=== PATIENT | male | born 1955 | race Caucasian/White ===

== ENCOUNTER 2017-07-29 16:06 | Emergency (ER) | payer SELFPAY ==
[~2017-07-29] VITALS: Ht 180.3 cm; Wt 77.1 kg
[2017-07-29] MEDS ORDERED: cloNIDine HCL 0.1 MG TAB PO ONE (17:15)
[2017-07-29 20:16] VITALS: BP 155/85
== END 2017-07-29 20:42 | disposition home or self-care (01) ==
LOC: ER 16:06
DX: I16.0 Hypertensive urgency (principal); I10 Essential (primary) hypertension; Z87.891 Personal history of nicotine dependence

== ENCOUNTER 2022-07-22 00:07 | Inpatient (IN) | payer BC ==
[~2022-07-22] VITALS: Ht 177.8 cm; Wt 68.7 kg
[2022-07-22 01:01] LABS: Eosinophils # (auto) 0 10 ^3/uL (0-0.8); Hematocrit 25.3 % (41.0-53.0); Hemoglobin 8.1 g/dL (13.5-17.5); Lymphocytes # (auto) 0.1 10 ^3/uL (0.4-5.4); Monocytes # (auto) 0.1 10 ^3/uL (0-1.3); Monocytes % (auto) 0.7 % (0.0-12.0)
[2022-07-22 01:03] LABS: Basophils # (auto) 0 10 ^3/uL (0-0.2); Basophils % (auto) 0.3 % (0.0-2.0); Lymphocytes % (auto) 0.8 % (10.0-50.0); Mean Corpuscular Volume 93.7 fL (80.0-100.0); Neutrophils # (auto) 14.8 10 ^3/uL (1.6-8.6); Neutrophils % (auto) 98.2 % (37.0-80.0); Red Cell Distribution Width 14.3 % (11.8-14.3); White Blood Cell 15.1 10^3/uL (4.4-10.8)
[2022-07-22] MEDS ORDERED: SODIUM CHLORIDE 0.9% 1,000 ML IV ONE (01:15)
[2022-07-22] MEDS ORDERED: cefTRIAXone 1GM/50ML D5W 50 ML IV ONE (01:15)
[2022-07-22 01:22] LABS: Albumin 3.7 g/dL (3.4-5.0); BUN/Creatinine Ratio 11.1; Calcium 9.4 mg/dL (8.5-10.1); Potassium 4.3 mmol/L (3.5-5.1)
[2022-07-22 01:24] LABS: Bilirubin, Total 0.3 mg/dL (0.2-1.0); Total Protein 6.7 g/dL (6.4-8.2)
[2022-07-22] MEDS ORDERED: FERROUS SULFATE 325mg EC TAB PO ONE (01:45)
[2022-07-22] MEDS ORDERED: NITROGLYCERIN 0.4 MG SL TAB SL PRN (06:15)
[2022-07-22] MEDS ORDERED: DOCUSATE SOD 100 MG CAP PO PRN (06:15)
[2022-07-22] MEDS ORDERED: MORPHINE SULFATE INJ 2 MG/ml SYRG IV PRN (06:15)
[2022-07-22] MEDS ORDERED: SODIUM CHLORIDE 0.9% 1,000 ML IV SCH (06:15)
[2022-07-22] MEDS ORDERED: ONDANSETRON HCL 4 MG/2 ML VIAL IV PRN (06:15)
[2022-07-22 06:57] LABS: Albumin 3.3 g/dL (3.4-5.0)
[2022-07-22 07:05] LABS: Hematocrit 23.2 % (41.0-53.0); Hemoglobin 7.4 g/dL (13.5-17.5); Mean Corpuscular Hemoglobin 30.4 pg (28.0-32.0); Mean Corpuscular Hgb Conc. 31.7 g/dL (32.0-36.0); Mean Corpuscular Volume 95.8 fL (80.0-100.0); Red Blood Cells 2.43 10^6/uL (4.5-5.90); White Blood Cell 24.6 10^3/uL (4.4-10.8)
[2022-07-22 07:08] LABS: Basophils % (manual) 0 (0.0-2.0); Bilirubin, Total 0.2 mg/dL (0.2-1.0); Blast Cells 0; Eosinophils % (manual) 0 (0-7); Metamyelocytes % 0; Myelocytes % 0; Promyelocytes % 0; Reactive Lymphocytes 0
[2022-07-22 08:01] LABS: Band Neutrophils % (manual) 15; Lymphocytes % (manual) 3 (10.0-50.0); Monocytes % (manual) 7 (0-12)
[2022-07-22] MEDS: ACETAMINOPHEN 650 mg PER 20.3 mL UD PO ONE ×2 (08:48→08:53)
[2022-07-22] MEDS: cefTRIAXone 1GM/50ML D5W 50 ML IV SCH (08:54)
[2022-07-22] MEDS: MULTIPLE VITAMIN TAB PO SCH (10:01)
[2022-07-22] MEDS: DOCUSATE SOD 100 MG CAP PO SCH ×2 (10:35→22:00)
[2022-07-22] MEDS: SODIUM CHLORIDE 0.9% 1,000 ML IV SCH ×2 (10:36→20:00)
[2022-07-22] MEDS: HYDROcodone-ACET 5/325MG TAB PO PRN ×2 (13:18→20:14)
[2022-07-22] MEDS: AMITRIPTYLINE HCL 25 MG TAB PO SCH (23:09)
[2022-07-22 23:57] LABS: Hematocrit 22.2 % (41.0-53.0); Hemoglobin 7.3 g/dL (13.5-17.5)
[2022-07-23] VITALS (9 sets, daily range): BP systolic 96–137; BP diastolic 47–74
[2022-07-23] MEDS: HYDROcodone-ACET 5/325MG TAB PO PRN ×2 (02:26→08:31)
[2022-07-23] MEDS: SODIUM CHLORIDE 0.9% 1,000 ML IV SCH (05:14)
[2022-07-23] MEDS: MULTIPLE VITAMIN TAB PO SCH (09:16)
[2022-07-23] MEDS: cefTRIAXone 1GM/50ML D5W 50 ML IV SCH (09:16)
[2022-07-23] MEDS: DOCUSATE SOD 100 MG CAP PO SCH ×2 (09:16→21:45)
[2022-07-23 10:17] LABS: Mean Corpuscular Hgb Conc. 34.1 g/dL (32.0-36.0); Red Blood Cells 2.09 10^6/uL (4.5-5.90); White Blood Cell 6.7 10^3/uL (4.4-10.8)
[2022-07-23 10:19] LABS: Mean Corpuscular Volume 90.9 fL (80.0-100.0); Red Cell Distribution Width 14.3 % (11.8-14.3)
[2022-07-23 10:53] LABS: Hemoglobin 6.5 g/dL (13.5-17.5)
[2022-07-23 10:54] LABS: Basophils % (manual) 0 (0.0-2.0); Blast Cells 0; Metamyelocytes % 0; Myelocytes % 0; Promyelocytes % 0; Reactive Lymphocytes 0
[2022-07-23 11:30] LABS: Potassium 4.3 mmol/L (3.5-5.1)
[2022-07-23 11:58] LABS: Albumin 2.8 g/dL (3.4-5.0); BUN/Creatinine Ratio 12.5; Bilirubin, Total 0.2 mg/dL (0.2-1.0); Calcium 9.1 mg/dL (8.5-10.1); Total Protein 5.4 g/dL (6.4-8.2)
[2022-07-23 13:12] LABS: Urine Bacteria NONE SEEN /hpf (None Seen); Urine Blood 2+ /uL (Negative); Urine Mucus FEW (None Seen); Urine Specific Gravity 1.009 (1.001-1.035); Urine WBC 57 /hpf (0 - 3); Urine WBC Clumps PRESENT /hpf (None Seen)
[2022-07-23 13:36] LABS: Band Neutrophils % (manual) 7; Eosinophils % (manual) 4 (0-7); Lymphocytes % (manual) 7 (10.0-50.0); Monocytes % (manual) 2 (0-12)
[2022-07-23] MEDS: SOD CHL 0.45% 1,000 ML IV SCH (15:45)
[2022-07-23] MEDS: HYDROcodone-ACET 10/325MG TAB PO PRN ×2 (15:58→21:50)
[2022-07-23] MEDS: AMITRIPTYLINE HCL 25 MG TAB PO SCH (21:46)
[2022-07-24] MEDS: SOD CHL 0.45% 1,000 ML IV SCH ×2 (00:43→10:30)
[2022-07-24] MEDS: HYDROcodone-ACET 10/325MG TAB PO PRN ×3 (04:32→19:08)
[2022-07-24 05:00] VITALS: BP 122/69
[2022-07-24 07:04] LABS: Hemoglobin 7.1 g/dL (13.5-17.5); Red Cell Distribution Width 15.6 % (11.8-14.3)
[2022-07-24 07:08] LABS: Hematocrit 21.3 % (41.0-53.0); Mean Corpuscular Hemoglobin 30.5 pg (28.0-32.0); Mean Corpuscular Hgb Conc. 33.3 g/dL (32.0-36.0); Mean Corpuscular Volume 91.6 fL (80.0-100.0); Red Blood Cells 2.33 10^6/uL (4.5-5.90); White Blood Cell 3.9 10^3/uL (4.4-10.8)
[2022-07-24 07:18] LABS: Basophils % (manual) 0 (0.0-2.0); Blast Cells 0; Metamyelocytes % 0; Myelocytes % 0; Promyelocytes % 0; Reactive Lymphocytes 0
[2022-07-24 07:28] LABS: Potassium 4.8 mmol/L (3.5-5.1)
[2022-07-24 08:14] LABS: Band Neutrophils % (manual) 2; Eosinophils % (manual) 10 (0-7); Lymphocytes % (manual) 23 (10.0-50.0); Monocytes % (manual) 13 (0-12)
[2022-07-24 09:00] VITALS: BP 120/67
[2022-07-24] MEDS: DOCUSATE SOD 100 MG CAP PO SCH ×2 (10:37→22:19)
[2022-07-24] MEDS: cefTRIAXone 1GM/50ML D5W 50 ML IV SCH (10:37)
[2022-07-24] MEDS: MULTIPLE VITAMIN TAB PO SCH (10:38)
[2022-07-24 13:00] VITALS: BP 128/60
[2022-07-24 17:00] VITALS: BP 135/63
[2022-07-24 22:00] VITALS: BP 159/63
[2022-07-24] MEDS: AMITRIPTYLINE HCL 25 MG TAB PO SCH (22:25)
[2022-07-25] MEDS: HYDROcodone-ACET 10/325MG TAB PO PRN ×5 (01:07→20:45)
[2022-07-25 05:00] VITALS: BP 123/63
[2022-07-25] MEDS: SOD CHL 0.45% 1,000 ML IV SCH ×3 (06:43→15:15)
[2022-07-25 07:54] LABS: Hematocrit 21.9 % (41.0-53.0); Hemoglobin 7.3 g/dL (13.5-17.5); Mean Corpuscular Hemoglobin 30.2 pg (28.0-32.0); Mean Corpuscular Hgb Conc. 33.1 g/dL (32.0-36.0); Mean Corpuscular Volume 91.1 fL (80.0-100.0); Red Blood Cells 2.41 10^6/uL (4.5-5.90); Red Cell Distribution Width 15.5 % (11.8-14.3); White Blood Cell 4.1 10^3/uL (4.4-10.8)
[2022-07-25 07:57] LABS: Basophils % (manual) 0 (0.0-2.0); Blast Cells 0; Metamyelocytes % 0; Myelocytes % 0; Promyelocytes % 0
[2022-07-25 08:00] VITALS: BP 139/71
[2022-07-25 08:36] LABS: Potassium 4.9 mmol/L (3.5-5.1)
[2022-07-25 08:47] LABS: BUN/Creatinine Ratio 14.1; Calcium 9.3 mg/dL (8.5-10.1)
[2022-07-25] MEDS: MULTIPLE VITAMIN TAB PO SCH (09:11)
[2022-07-25] MEDS: cefTRIAXone 1GM/50ML D5W 50 ML IV SCH (09:11)
[2022-07-25] MEDS: DOCUSATE SOD 100 MG CAP PO SCH (09:11)
[2022-07-25 09:52] LABS: Band Neutrophils % (manual) 3; Eosinophils % (manual) 5 (0-7); Lymphocytes % (manual) 14 (10.0-50.0); Monocytes % (manual) 15 (0-12); Reactive Lymphocytes 1
[2022-07-25 13:00] VITALS: BP 122/72
[2022-07-25 17:12] VITALS: BP 118/70
[2022-07-25] MEDS: SODIUM FERR GLUC 62.5MG/5ML 125 MG in SODIUM CHL 0.9% 100 ML IV SCH (17:12)
[2022-07-25] MEDS: SEVELAMER 800 MG TAB PO SCH (17:13)
[2022-07-25 22:00] VITALS: BP 141/69
[2022-07-26] MEDS: DOCUSATE SOD 100 MG CAP PO SCH ×3 (02:29→21:36)
[2022-07-26] MEDS: AMITRIPTYLINE HCL 25 MG TAB PO SCH ×2 (02:30→21:36)
[2022-07-26 05:00] VITALS: BP 164/75
[2022-07-26] MEDS: SOD CHL 0.45% 1,000 ML IV SCH ×2 (05:33→19:51)
[2022-07-26 06:58] VITALS: BP 134/71
[2022-07-26] MEDS: cefTRIAXone 1GM/50ML D5W 50 ML IV SCH (08:01)
[2022-07-26] MEDS: SEVELAMER 800 MG TAB PO SCH ×3 (08:01→19:07)
[2022-07-26] MEDS: MULTIPLE VITAMIN TAB PO SCH (08:01)
[2022-07-26 09:08] VITALS: BP 131/74
[2022-07-26] MEDS ORDERED: levoFLOXacin 500MG 100 ML IV ONE (11:00)
[2022-07-26] MEDS: HYDROcodone-ACET 10/325MG TAB PO PRN ×2 (11:10→19:07)
[2022-07-26 13:00] VITALS: BP 150/80
[2022-07-26] MEDS: SODIUM FERR GLUC 62.5MG/5ML 125 MG in SODIUM CHL 0.9% 100 ML IV SCH (13:47)
[2022-07-26 16:39] VITALS: BP 132/84
[2022-07-26 17:30] LABS: % Iron Saturation 15.1 % (20-55)
[2022-07-26 22:00] VITALS: BP 166/91
[2022-07-27] MEDS: HYDROcodone-ACET 10/325MG TAB PO PRN ×3 (01:25→13:56)
[2022-07-27 05:00] VITALS: BP 131/71
[2022-07-27 07:44] LABS: Calcium 9.6 mg/dL (8.5-10.1); Potassium 5.3 mmol/L (3.5-5.1)
[2022-07-27 07:47] LABS: BUN/Creatinine Ratio 15.5
[2022-07-27] MEDS: SEVELAMER 800 MG TAB PO SCH ×2 (08:17→12:25)
[2022-07-27 09:00] VITALS: BP 162/80
[2022-07-27] MEDS: DOCUSATE SOD 100 MG CAP PO SCH (09:38)
[2022-07-27] MEDS: MULTIPLE VITAMIN TAB PO SCH (09:38)
[2022-07-27] MEDS ORDERED: levoFLOXacin 250MG 100 ML IV SCH (10:00)
[2022-07-27] MEDS ORDERED: SODIUM BICARBONATE 50ML VIAL 50 ML in SOD CHL 0.45% 1,000 ML IV SCH (12:00)
[2022-07-27 13:00] VITALS: BP 149/85
[2022-07-27] MEDS ORDERED: LEVO500T31 PO (13:11)
[2022-07-27] MEDS ORDERED: SEVE800T PO (13:11)
[2022-07-27] MEDS ORDERED: HYDR-4798 PO (13:11)
[2022-07-27] MEDS ORDERED: FERR-7 PO (13:11)
[2022-07-27] MEDS: SODIUM FERR GLUC 62.5MG/5ML 125 MG in SODIUM CHL 0.9% 100 ML IV SCH (13:30)
[2022-07-27 14:54] LABS: Protein, Urine 52.5 mg/dL (0.0-11.9)
[2022-07-27 15:38] VITALS: BP 149/85
[2022-07-27 17:00] VITALS: BP 89/51
== END 2022-07-27 17:35 | disposition home or self-care (01) | DRG 872 ==
LOC: ER 00:11 → OVERFLOW 06:07 → WEST WING 07-23 02:43
PROVIDERS: ADMIT Nurse Practitioner; ATTEND Family Medicine
PROC: 30233N1 Transfusion of Nonautologous Red Blood Cells into Peripheral Vein, Percutaneous Approach (ICD-10-PCS; principal; 2022-07-23)
DX: A41.9 Sepsis, unspecified organism (principal); I12.0 Hypertensive chronic kidney disease with stage 5 chronic kidney disease or end stage renal disease; N13.8 Other obstructive and reflux uropathy; Z16.19 Resistance to other specified beta lactam antibiotics; N17.9 Acute kidney failure, unspecified; N18.5 Chronic kidney disease, stage 5; Z20.822 Contact with and (suspected) exposure to COVID-19; D50.0 Iron deficiency anemia secondary to blood loss (chronic); D63.1 Anemia in chronic kidney disease; F31.9 Bipolar disorder, unspecified; G89.4 Chronic pain syndrome; N40.1 Benign prostatic hyperplasia with lower urinary tract symptoms; N30.91 Cystitis, unspecified with hematuria; Z82.49 Family history of ischemic heart disease and other diseases of the circulatory system
CPT/HCPCS: 36415; 74176; 76775; 80048; 80053; 81001; 82306; 82570; 82728; 83540; 83550; 83970; 84100; 84156; 84300; 84550; 85007; 85014; 85018; 85025; 85027; 86850; 86900; 86901; 86920; 87040; 87086; 87088; 87186; 87426; 96361; 96365; 96366; G0378; J0696; J1956; J2405

== ENCOUNTER 2022-12-24 11:08 | Inpatient (IN) | payer MEDICARE, BC ==
[~2022-12-24] VITALS: Ht 177.8 cm; Wt 66.4 kg
[~2022-12-24 11:08] MED LIST: FERR-7 PO; HYDR-4798 PO; LEVO500T31 PO; SEVE800T PO
[2022-12-24] MEDS ORDERED: cefTRIAXone 1GM/50ML D5W 50 ML IV ONE (11:45)
[2022-12-24] MEDS ORDERED: CLINDAMYCIN 600MG IV 50 ML IV ONE (11:45)
[2022-12-24 11:47] LABS: Basophils # (auto) 0.2 10 ^3/uL (0-0.2); Hemoglobin 7.7 g/dL (13.5-17.5); Monocytes # (auto) 0.8 10 ^3/uL (0-1.3); White Blood Cell 8.8 10^3/uL (4.4-10.8)
[2022-12-24 11:48] LABS: Albumin 2.7 g/dL (3.4-5.0); BUN/Creatinine Ratio 6.8 (10.0-20.0); Calcium 8.3 mg/dL (8.5-10.1); Potassium 5.3 mmol/L (3.5-5.1)
[2022-12-24 11:49] LABS: Eosinophils # (auto) 0.8 10 ^3/uL (0-0.8); Eosinophils % (auto) 9.2 % (0.0-7.0); Hematocrit 23.2 % (41.0-53.0); Lymphocytes # (auto) 0.7 10 ^3/uL (0.4-5.4); Lymphocytes % (auto) 8.4 % (10.0-50.0); Mean Corpuscular Hemoglobin 30.3 pg (28.0-32.0); Mean Corpuscular Volume 91.7 fL (80.0-100.0); Monocytes % (auto) 8.6 % (0.0-12.0); Neutrophils # (auto) 6.3 10 ^3/uL (1.6-8.6); Neutrophils % (auto) 71.8 % (37.0-80.0); Nucleated Red Blood Cells % 0.1 %; Red Blood Cells 2.53 10^6/uL (4.5-5.90); Red Cell Distribution Width 15.2 % (11.8-14.3)
[2022-12-24 11:51] LABS: Bilirubin, Total 0.3 mg/dL (0.2-1.0); Total Protein 6.1 g/dL (6.4-8.2)
[2022-12-24 12:04] LABS: INR 0.89 (0.9-1.15)
[2022-12-24] MEDS ORDERED: FUROSEMIDE 40 MG/4 ML VIAL IV ONE (12:30)
[2022-12-24] MEDS ORDERED: DEXTROSE (50%) 50ML SYRG IV PRN (12:45)
[2022-12-24] MEDS: MORPHINE SULFATE INJ 2 MG/ml SYRG IV PRN ×2 (13:14→20:37)
[2022-12-24] MEDS: InsuLIN REG 1unit/0.01ml Soln (100units/ml) SC SCH ×2 (20:08→22:56)
[2022-12-24] MEDS: ACCU-CHEK COMFORT CURVE STRIP VI SCH ×2 (20:08→22:14)
[2022-12-24 22:00] VITALS: BP 167/75
[2022-12-24] MEDS: SEVELAMER 800 MG TAB PO SCH (22:14)
[2022-12-24] MEDS: FERROUS SULFATE 325mg EC TAB PO SCH (22:14)
[2022-12-24] MEDS: HEPARIN SODIUM (PORCINE) 5000 UNITS/ML 1ML VIAL SC SCH (22:56)
[2022-12-25] VITALS (11 sets, daily range): BP systolic 134–159; BP diastolic 66–100
[2022-12-25] MEDS: MORPHINE SULFATE INJ 2 MG/ml SYRG IV PRN ×4 (01:34→21:36)
[2022-12-25 05:52] LABS: Basophils # (auto) 0.2 10 ^3/uL (0-0.2); Lymphocytes # (auto) 0.8 10 ^3/uL (0.4-5.4); Monocytes # (auto) 0.7 10 ^3/uL (0-1.3)
[2022-12-25 05:54] LABS: Basophils % (auto) 2.1 % (0.0-2.0); Eosinophils # (auto) 0.7 10 ^3/uL (0-0.8); Eosinophils % (auto) 9.6 % (0.0-7.0); Lymphocytes % (auto) 10.5 % (10.0-50.0); Mean Corpuscular Hemoglobin 30.2 pg (28.0-32.0); Mean Corpuscular Hgb Conc. 33.1 g/dL (32.0-36.0); Mean Corpuscular Volume 91.1 fL (80.0-100.0); Monocytes % (auto) 9.6 % (0.0-12.0); Neutrophils # (auto) 5.2 10 ^3/uL (1.6-8.6); Neutrophils % (auto) 68.2 % (37.0-80.0); Red Blood Cells 2.31 10^6/uL (4.5-5.90); Red Cell Distribution Width 15.4 % (11.8-14.3); White Blood Cell 7.6 10^3/uL (4.4-10.8)
[2022-12-25 06:11] LABS: Albumin 2.7 g/dL (3.4-5.0)
[2022-12-25 06:20] LABS: BUN/Creatinine Ratio 7.8 (10.0-20.0); Bilirubin, Total 0.4 mg/dL (0.2-1.0); Calcium 8.1 mg/dL (8.5-10.1); Total Protein 5.6 g/dL (6.4-8.2)
[2022-12-25] MEDS: InsuLIN REG 1unit/0.01ml Soln (100units/ml) SC SCH (06:31)
[2022-12-25] MEDS: ACCU-CHEK COMFORT CURVE STRIP VI SCH (06:31)
[2022-12-25] MEDS: SEVELAMER 800 MG TAB PO SCH ×3 (06:31→21:30)
[2022-12-25] MEDS: cefTRIAXone 1GM/50ML D5W 50 ML IV SCH (08:46)
[2022-12-25] MEDS: FERROUS SULFATE 325mg EC TAB PO SCH ×2 (08:50→21:29)
[2022-12-25] MEDS: PANTOPRAZOLE 40 MG TAB PO SCH (08:50)
[2022-12-25 09:53] LABS: Urine Bacteria MOD /hpf (None Seen); Urine Blood TRACE /uL (Negative); Urine Budding Yeast OCCASIONAL /hpf (None Seen); Urine Mucus FEW (None Seen); Urine Specific Gravity 1.009 (1.001-1.035); Urine WBC 186 /hpf (0 - 3)
[2022-12-25] MEDS: HEPARIN SODIUM (PORCINE) 5000 UNITS/ML 1ML VIAL SC SCH (10:00)
[2022-12-25 10:06] LABS: Alcohol, Urine < 3.0 mg/dL (0-10); Amphetamine Screen, Urine NEGATIVE (NEGATIVE); Barbiturate Scree,Urine NEGATIVE (NEGATIVE); Benzodiazephine Screen, Urine NEGATIVE (NEGATIVE); Cannabinoid Screen, Urine NEGATIVE (NEGATIVE); Cocaine Screen, Urine NEGATIVE (NEGATIVE); Opiate Scree,Urine NEGATIVE (NEGATIVE); Phencyclidine Screen, Urine NEGATIVE (NEGATIVE)
[2022-12-25] MEDS ORDERED: ALBUMIN 25% 100 ML IV PRN (11:15)
[2022-12-25 12:19] LABS: Hematocrit 20.2 % (41.0-53.0)
[2022-12-25 12:30] LABS: Hemoglobin 6.5 g/dL (13.5-17.5)
[2022-12-25] MEDS: ACETAMINOPHEN 500 MG TAB PO PRN ×2 (13:47→20:26)
[2022-12-25] MEDS: FUROSEMIDE 20 MG/2 ML VIAL IV SCH (15:35)
[2022-12-25] MEDS ORDERED: EPOETIN ALFA-EPBX 4,000 UNIT/ML VIAL SC ONE (21:00)
[2022-12-25] MEDS ORDERED: dilTIAZem 25 MG/5 ML VIAL IV ONE ×2 (22:00→22:01)
[2022-12-25] MEDS ORDERED: AMIODARONE HCL (50 MG/ ML) 3 ML VIAL IV ONE (22:10)
[2022-12-25] MEDS ORDERED: MORPHINE SULFATE INJ 2 MG/ml SYRG IV PRN (22:15)
[2022-12-25] MEDS ORDERED: NITROGLYCERIN 0.4 MG SL TAB SL PRN (22:15)
[2022-12-26 00:03] LABS: Albumin 2.5 g/dL (3.4-5.0); BUN/Creatinine Ratio 7.5 (10.0-20.0); Magnesium 1.8 mg/dL (1.6-2.6); Potassium 4.2 mmol/L (3.5-5.1)
[2022-12-26 00:14] LABS: Bilirubin, Total 0.3 mg/dL (0.2-1.0); Total Protein 6.2 g/dL (6.4-8.2)
[2022-12-26] MEDS: MORPHINE SULFATE INJ 2 MG/ml SYRG IV PRN ×3 (01:59→23:49)
[2022-12-26 05:00] VITALS: BP 140/88
[2022-12-26] MEDS: SEVELAMER 800 MG TAB PO SCH ×3 (05:10→21:03)
[2022-12-26] MEDS: SODIUM CHLOR 0.9% PF (SALINE LOCK) 10ML VIAL/SYR IV SCH ×3 (05:11→23:44)
[2022-12-26 06:31] LABS: Albumin 2.3 g/dL (3.4-5.0); BUN/Creatinine Ratio 8.9 (10.0-20.0); Calcium 8.2 mg/dL (8.5-10.1); Potassium 4.2 mmol/L (3.5-5.1)
[2022-12-26 06:32] LABS: Basophils # (auto) 0.1 10 ^3/uL (0-0.2); Eosinophils # (auto) 0.4 10 ^3/uL (0-0.8); Lymphocytes # (auto) 0.9 10 ^3/uL (0.4-5.4); White Blood Cell 8.5 10^3/uL (4.4-10.8)
[2022-12-26 06:34] LABS: Basophils % (auto) 1.3 % (0.0-2.0); Bilirubin, Total 0.4 mg/dL (0.2-1.0); Eosinophils % (auto) 4.3 % (0.0-7.0); Hematocrit 22.8 % (41.0-53.0); Hemoglobin 7.6 g/dL (13.5-17.5); Lymphocytes % (auto) 11.1 % (10.0-50.0); Mean Corpuscular Hemoglobin 29.6 pg (28.0-32.0); Mean Corpuscular Hgb Conc. 33.2 g/dL (32.0-36.0); Mean Corpuscular Volume 89.3 fL (80.0-100.0); Monocytes # (auto) 1.2 10 ^3/uL (0-1.3); Monocytes % (auto) 13.7 % (0.0-12.0); Neutrophils # (auto) 5.9 10 ^3/uL (1.6-8.6); Neutrophils % (auto) 69.6 % (37.0-80.0); Nucleated Red Blood Cells % 0.1 %; Red Blood Cells 2.56 10^6/uL (4.5-5.90); Red Cell Distribution Width 15.7 % (11.8-14.3); Total Protein 5.8 g/dL (6.4-8.2)
[2022-12-26 08:40] VITALS: BP 137/77
[2022-12-26] MEDS: ACETAMINOPHEN 500 MG TAB PO PRN (11:17)
[2022-12-26] MEDS: FUROSEMIDE 20 MG/2 ML VIAL IV SCH (11:17)
[2022-12-26] MEDS: FERROUS SULFATE 325mg EC TAB PO SCH ×2 (11:18→21:03)
[2022-12-26] MEDS: PANTOPRAZOLE 40 MG TAB PO SCH (11:18)
[2022-12-26] MEDS: cefTRIAXone 1GM/50ML D5W 50 ML IV SCH (11:18)
[2022-12-26 13:00] VITALS: BP 128/80
[2022-12-26 16:40] VITALS: BP 138/90
[2022-12-26] MEDS ORDERED: BUMETANIDE INJECTION 25 MG in GIVE UN-DILUTED 0 ML IV SCH (20:15)
[2022-12-26 22:00] VITALS: BP 157/85
[2022-12-27] VITALS (36 sets, daily range): BP systolic 136–175; BP diastolic 63–98
[2022-12-27] MEDS: hydrALAZINE HCL 20 MG/ML VL IV PRN (04:50)
[2022-12-27] MEDS: SEVELAMER 800 MG TAB PO SCH ×3 (05:10→21:28)
[2022-12-27] MEDS: SODIUM CHLOR 0.9% PF (SALINE LOCK) 10ML VIAL/SYR IV SCH ×3 (05:11→22:00)
[2022-12-27 05:53] LABS: Basophils # (auto) 0.1 10 ^3/uL (0-0.2); Eosinophils # (auto) 0.4 10 ^3/uL (0-0.8); Hemoglobin 7.3 g/dL (13.5-17.5); Lymphocytes # (auto) 0.9 10 ^3/uL (0.4-5.4); Mean Corpuscular Volume 90.4 fL (80.0-100.0); Monocytes # (auto) 1.3 10 ^3/uL (0-1.3)
[2022-12-27 05:56] LABS: Basophils % (auto) 1.2 % (0.0-2.0); Hematocrit 22.4 % (41.0-53.0); Mean Corpuscular Hemoglobin 29.4 pg (28.0-32.0); Mean Corpuscular Hgb Conc. 32.6 g/dL (32.0-36.0); Monocytes % (auto) 13.4 % (0.0-12.0); Neutrophils # (auto) 6.7 10 ^3/uL (1.6-8.6); Neutrophils % (auto) 71.4 % (37.0-80.0); Red Blood Cells 2.48 10^6/uL (4.5-5.90); Red Cell Distribution Width 15.6 % (11.8-14.3); White Blood Cell 9.4 10^3/uL (4.4-10.8)
[2022-12-27 06:15] LABS: % Iron Saturation 6.6 % (20-55)
[2022-12-27 06:17] LABS: Potassium 4.8 mmol/L (3.5-5.1)
[2022-12-27 06:27] LABS: Albumin 2.5 g/dL (3.4-5.0); BUN/Creatinine Ratio 9.9 (10.0-20.0); Bilirubin, Total 0.3 mg/dL (0.2-1.0); Calcium 8.3 mg/dL (8.5-10.1)
[2022-12-27 06:33] LABS: Folate (Folic Acid) 4.99 ng/mL (5.38-24)
[2022-12-27] MEDS: MORPHINE SULFATE INJ 2 MG/ml SYRG IV PRN ×3 (08:11→21:19)
[2022-12-27] MEDS: PANTOPRAZOLE 40 MG TAB PO SCH (09:25)
[2022-12-27] MEDS: cefTRIAXone 1GM/50ML D5W 50 ML IV SCH (09:25)
[2022-12-27] MEDS: ACETAMINOPHEN 500 MG TAB PO PRN (10:28)
[2022-12-27] MEDS ORDERED: LORazepam 2MG/ML-1ML VIAL IV ONE (11:45)
[2022-12-27] MEDS ORDERED: ADENOSINE 6 MG/2 ML INJ IV ONE (11:45)
[2022-12-27] MEDS ORDERED: LORazepam 2MG/ML-1ML VIAL ONE (11:47)
[2022-12-27] MEDS ORDERED: AMIODARONE 450mg/250ml AE 250 ML IV ONE (11:53)
[2022-12-27] MEDS ORDERED: DIGOXIN (250MCG/ML) 2 ML AMPULE IV ONE (12:00)
[2022-12-27] MEDS ORDERED: AMIODARONE HCL 150 MG in D5W 5% 100 ML IV ONE (12:00)
[2022-12-27] MEDS ORDERED: DIGOXIN (250MCG/ML) 2 ML AMPULE ONE (12:00)
[2022-12-27] MEDS ORDERED: METOPROLOL TARTRATE 1MG/1ML-5ML VIAL IV ONE ×2 (12:14→12:15)
[2022-12-27] MEDS ORDERED: AMIODARONE 450mg/250ml AE 250 ML IV SCH ×4 (12:15→22:45)
[2022-12-27] MEDS: SODIUM FERR GLUC 62.5MG/5ML 125 MG in SODIUM CHL 0.9% 100 ML IV SCH (15:44)
[2022-12-27] MEDS: AMIODARONE 450mg/250ml AE 250 ML IV SCH ×2 (16:30→22:01)
[2022-12-27] MEDS ORDERED: FUROSEMIDE 100 MG/10ML VIAL IV ONE (16:30)
[2022-12-27] MEDS ORDERED: FUROSEMIDE 40 MG/4 ML VIAL IV ONE (20:30)
[2022-12-27] MEDS: ALPRAZolam 0.5 MG TAB PO SCH (21:28)
[2022-12-28] VITALS (63 sets, daily range): BP systolic 12–174; BP diastolic 45–97
[2022-12-28] MEDS: hydrALAZINE HCL 20 MG/ML VL IV PRN (01:48)
[2022-12-28 05:07] LABS: Basophils # (auto) 0.1 10 ^3/uL (0-0.2); Basophils % (auto) 0.9 % (0.0-2.0); Eosinophils # (auto) 0.5 10 ^3/uL (0-0.8); Eosinophils % (auto) 6.3 % (0.0-7.0); Hematocrit 23.4 % (41.0-53.0); Hemoglobin 7.8 g/dL (13.5-17.5); Lymphocytes # (auto) 0.9 10 ^3/uL (0.4-5.4); Lymphocytes % (auto) 11.3 % (10.0-50.0); Mean Corpuscular Hgb Conc. 33.3 g/dL (32.0-36.0); Mean Corpuscular Volume 90.1 fL (80.0-100.0); Monocytes # (auto) 1.2 10 ^3/uL (0-1.3); Neutrophils # (auto) 5.6 10 ^3/uL (1.6-8.6); Neutrophils % (auto) 67.5 % (37.0-80.0); Red Blood Cells 2.59 10^6/uL (4.5-5.90); Red Cell Distribution Width 15.8 % (11.8-14.3); White Blood Cell 8.3 10^3/uL (4.4-10.8)
[2022-12-28 05:35] LABS: Albumin 2.4 g/dL (3.4-5.0); Calcium 8.9 mg/dL (8.5-10.1); Potassium 5.1 mmol/L (3.5-5.1)
[2022-12-28 05:39] LABS: Bilirubin, Total 0.4 mg/dL (0.2-1.0); Total Protein 5.8 g/dL (6.4-8.2)
[2022-12-28] MEDS ORDERED: FUROSEMIDE 100 MG/10ML VIAL IV SCH (06:00)
[2022-12-28] MEDS: SODIUM CHLOR 0.9% PF (SALINE LOCK) 10ML VIAL/SYR IV SCH ×3 (06:00→21:29)
[2022-12-28] MEDS: ALPRAZolam 0.5 MG TAB PO SCH ×3 (06:42→21:29)
[2022-12-28] MEDS: SEVELAMER 800 MG TAB PO SCH ×3 (06:42→21:29)
[2022-12-28] MEDS: FUROSEMIDE 100 MG/10ML VIAL IV SCH ×2 (06:43→18:39)
[2022-12-28] MEDS: MORPHINE SULFATE INJ 2 MG/ml SYRG IV PRN ×2 (06:51→23:24)
[2022-12-28] MEDS: PANTOPRAZOLE 40 MG TAB PO SCH (08:40)
[2022-12-28] MEDS: ACETAMINOPHEN 500 MG TAB PO PRN (11:38)
[2022-12-28] MEDS: SODIUM FERR GLUC 62.5MG/5ML 125 MG in SODIUM CHL 0.9% 100 ML IV SCH (14:08)
[2022-12-28] MEDS: AMIODARONE 450mg/250ml AE 250 ML IV SCH (14:59)
[2022-12-28] MEDS: cefTRIAXone 1GM/50ML D5W 50 ML IV SCH (15:11)
[2022-12-28] MEDS ORDERED: EPOETIN ALFA-EPBX 4,000 UNIT/ML VIAL SC ONE (21:00)
[2022-12-29] VITALS (18 sets, daily range): BP systolic 121–164; BP diastolic 58–80
[2022-12-29 05:34] LABS: Basophils # (auto) 0.1 10 ^3/uL (0-0.2); Eosinophils # (auto) 0.7 10 ^3/uL (0-0.8); Hemoglobin 8.1 g/dL (13.5-17.5); Mean Corpuscular Volume 88.8 fL (80.0-100.0); Monocytes # (auto) 1.1 10 ^3/uL (0-1.3)
[2022-12-29 05:38] LABS: Basophils % (auto) 2.1 % (0.0-2.0); Eosinophils % (auto) 10.1 % (0.0-7.0); Hematocrit 24.4 % (41.0-53.0); Lymphocytes % (auto) 13.9 % (10.0-50.0); Mean Corpuscular Hemoglobin 29.4 pg (28.0-32.0); Mean Corpuscular Hgb Conc. 33.1 g/dL (32.0-36.0); Monocytes % (auto) 16.1 % (0.0-12.0); Neutrophils # (auto) 4.1 10 ^3/uL (1.6-8.6); Neutrophils % (auto) 57.8 % (37.0-80.0); Nucleated Red Blood Cells % 0.1 %; Red Blood Cells 2.74 10^6/uL (4.5-5.90); Red Cell Distribution Width 15.8 % (11.8-14.3)
[2022-12-29 05:39] LABS: Albumin 2.4 g/dL (3.4-5.0); Calcium 8.8 mg/dL (8.5-10.1); Potassium 4.6 mmol/L (3.5-5.1)
[2022-12-29 05:42] LABS: BUN/Creatinine Ratio 11.6 (10.0-20.0); Bilirubin, Total 0.2 mg/dL (0.2-1.0); Total Protein 5.7 g/dL (6.4-8.2)
[2022-12-29] MEDS: ALPRAZolam 0.5 MG TAB PO SCH ×3 (05:56→21:10)
[2022-12-29] MEDS: SEVELAMER 800 MG TAB PO SCH ×3 (05:57→21:09)
[2022-12-29] MEDS: SODIUM CHLOR 0.9% PF (SALINE LOCK) 10ML VIAL/SYR IV SCH ×3 (05:57→21:10)
[2022-12-29] MEDS: FUROSEMIDE 100 MG/10ML VIAL IV SCH ×2 (06:10→16:41)
[2022-12-29] MEDS: AMIODARONE 450mg/250ml AE 250 ML IV SCH (06:11)
[2022-12-29] MEDS: cefTRIAXone 1GM/50ML D5W 50 ML IV SCH (08:42)
[2022-12-29] MEDS: PANTOPRAZOLE 40 MG TAB PO SCH (08:42)
[2022-12-29] MEDS: AMIODARONE HCL 200 MG TAB PO SCH ×2 (09:05→21:09)
[2022-12-29] MEDS: MORPHINE SULFATE INJ 2 MG/ml SYRG IV PRN ×2 (09:07→21:11)
[2022-12-29] MEDS: SODIUM FERR GLUC 62.5MG/5ML 125 MG in SODIUM CHL 0.9% 100 ML IV SCH (12:05)
[2022-12-29] MEDS ORDERED: HALOPERIDOL LACTATE 5 MG/ML INJ VIAL IM PRN (17:30)
[2022-12-30] VITALS (8 sets, daily range): BP systolic 131–171; BP diastolic 70–96
[2022-12-30] MEDS: MORPHINE SULFATE INJ 2 MG/ml SYRG IV PRN ×2 (01:15→14:45)
[2022-12-30 04:34] LABS: Eosinophils # (auto) 0.8 10 ^3/uL (0-0.8); Hematocrit 25.5 % (41.0-53.0); Hemoglobin 8.4 g/dL (13.5-17.5); Red Cell Distribution Width 15.8 % (11.8-14.3)
[2022-12-30 04:36] LABS: Basophils # (auto) 0.1 10 ^3/uL (0-0.2); Basophils % (auto) 1.6 % (0.0-2.0); Eosinophils % (auto) 11.4 % (0.0-7.0); Lymphocytes # (auto) 1.1 10 ^3/uL (0.4-5.4); Lymphocytes % (auto) 15.6 % (10.0-50.0); Mean Corpuscular Hemoglobin 29.7 pg (28.0-32.0); Mean Corpuscular Hgb Conc. 33.1 g/dL (32.0-36.0); Mean Corpuscular Volume 89.5 fL (80.0-100.0); Monocytes % (auto) 14.3 % (0.0-12.0); Neutrophils % (auto) 57.1 % (37.0-80.0); Red Blood Cells 2.84 10^6/uL (4.5-5.90)
[2022-12-30 04:43] LABS: Potassium 4.8 mmol/L (3.5-5.1)
[2022-12-30 04:52] LABS: Albumin 2.3 g/dL (3.4-5.0); BUN/Creatinine Ratio 12.4 (10.0-20.0); Bilirubin, Total 0.2 mg/dL (0.2-1.0); Calcium 9.1 mg/dL (8.5-10.1)
[2022-12-30] MEDS: SEVELAMER 800 MG TAB PO SCH ×3 (06:28→21:57)
[2022-12-30] MEDS: SODIUM CHLOR 0.9% PF (SALINE LOCK) 10ML VIAL/SYR IV SCH ×3 (06:28→21:57)
[2022-12-30] MEDS: FUROSEMIDE 100 MG/10ML VIAL IV SCH ×2 (06:28→18:45)
[2022-12-30] MEDS: ALPRAZolam 0.5 MG TAB PO SCH ×3 (06:28→21:57)
[2022-12-30] MEDS: PANTOPRAZOLE 40 MG TAB PO SCH (07:50)
[2022-12-30] MEDS: cefTRIAXone 1GM/50ML D5W 50 ML IV SCH (07:50)
[2022-12-30] MEDS: AMIODARONE HCL 200 MG TAB PO SCH ×2 (07:52→21:57)
[2022-12-30] MEDS: SODIUM FERR GLUC 62.5MG/5ML 125 MG in SODIUM CHL 0.9% 100 ML IV SCH (14:23)
[2022-12-30] MEDS: hydrALAZINE HCL 20 MG/ML VL IV PRN (15:53)
[2022-12-31] MEDS: MORPHINE SULFATE INJ 2 MG/ml SYRG IV PRN ×3 (03:18→19:39)
[2022-12-31 04:56] VITALS: BP 153/76
[2022-12-31] MEDS: SEVELAMER 800 MG TAB PO SCH ×3 (05:40→21:34)
[2022-12-31] MEDS: ALPRAZolam 0.5 MG TAB PO SCH ×3 (05:40→21:34)
[2022-12-31] MEDS: SODIUM CHLOR 0.9% PF (SALINE LOCK) 10ML VIAL/SYR IV SCH ×3 (05:40→21:34)
[2022-12-31] MEDS: FUROSEMIDE 100 MG/10ML VIAL IV SCH ×2 (05:40→18:00)
[2022-12-31] MEDS: cefTRIAXone 1GM/50ML D5W 50 ML IV SCH (08:58)
[2022-12-31] MEDS: AMIODARONE HCL 200 MG TAB PO SCH ×2 (09:02→21:34)
[2022-12-31] MEDS: PANTOPRAZOLE 40 MG TAB PO SCH (09:02)
[2022-12-31 09:21] VITALS: BP 138/81
[2022-12-31 13:23] VITALS: BP 158/64
[2022-12-31] MEDS: SODIUM FERR GLUC 62.5MG/5ML 125 MG in SODIUM CHL 0.9% 100 ML IV SCH (13:40)
[2022-12-31 17:00] VITALS: BP 155/89
[2022-12-31] MEDS ORDERED: EPOETIN ALFA-EPBX 4,000 UNIT/ML VIAL SC ONE (21:00)
[2022-12-31] MEDS: ACETAMINOPHEN 500 MG TAB PO PRN (21:34)
[2022-12-31 22:00] VITALS: BP 123/82
[2023-01-01 05:00] VITALS: BP 116/70
[2023-01-01] MEDS: ALPRAZolam 0.5 MG TAB PO SCH (06:06)
[2023-01-01] MEDS: FUROSEMIDE 100 MG/10ML VIAL IV SCH (06:06)
[2023-01-01] MEDS: SEVELAMER 800 MG TAB PO SCH (06:07)
[2023-01-01] MEDS: SODIUM CHLOR 0.9% PF (SALINE LOCK) 10ML VIAL/SYR IV SCH (06:11)
[2023-01-01] MEDS: ACETAMINOPHEN 500 MG TAB PO PRN (06:28)
[2023-01-01 09:00] VITALS: BP 116/58
[2023-01-01] MEDS: cefTRIAXone 1GM/50ML D5W 50 ML IV SCH (09:36)
[2023-01-01] MEDS: AMIODARONE HCL 200 MG TAB PO SCH (09:36)
[2023-01-01] MEDS: PANTOPRAZOLE 40 MG TAB PO SCH (09:36)
[2023-01-01] MEDS ORDERED: AMIO200T13 PO (10:42)
[2023-01-01] MEDS ORDERED: HYDR-4902 PO (10:42)
[2023-01-01] MEDS ORDERED: LEVO500T91 PO (10:42)
[2023-01-01] MEDS ORDERED: PANT40TA2 PO (10:49)
[2023-01-01 12:19] VITALS: BP 116/70
== END 2023-01-01 15:47 | disposition home or self-care (01) | DRG 291 ==
LOC: ER 11:08 → OVERFLOW 12:27 → CENTRAL 22:20 → TELE-WESTW 12-25 23:00 → DOU IN ICU 12-27 14:20 → ICU CENTRL 12-27 14:51 → DOU IN ICU 12-29 15:47 → TELE-WESTW 12-30 12:32
PROVIDERS: ADMIT Nurse Practitioner Family; ATTEND Family Medicine
PROC: 5A1D70Z Performance of Urinary Filtration, Intermittent, Less than 6 Hours Per Day (ICD-10-PCS; 2022-12-25)
PROC: 30233N1 Transfusion of Nonautologous Red Blood Cells into Peripheral Vein, Percutaneous Approach (ICD-10-PCS; 2022-12-25)
PROC: 05HD33Z Insertion of Infusion Device into Right Cephalic Vein, Percutaneous Approach (ICD-10-PCS; principal; 2022-12-28)
PROC: B54MZZA Ultrasonography of Right Upper Extremity Veins, Guidance (ICD-10-PCS; 2022-12-28)
PROC: 5A1D70Z Performance of Urinary Filtration, Intermittent, Less than 6 Hours Per Day (ICD-10-PCS; 2022-12-28)
PROC: 5A1D70Z Performance of Urinary Filtration, Intermittent, Less than 6 Hours Per Day (ICD-10-PCS; 2022-12-31)
DX: I13.2 Hypertensive heart and chronic kidney disease with heart failure and with stage 5 chronic kidney disease, or end stage renal disease (principal); E43 Unspecified severe protein-calorie malnutrition; N18.6 End stage renal disease; I50.43 Acute on chronic combined systolic (congestive) and diastolic (congestive) heart failure; N39.0 Urinary tract infection, site not specified; L03.116 Cellulitis of left lower limb; L03.115 Cellulitis of right lower limb; N17.9 Acute kidney failure, unspecified; E87.5 Hyperkalemia; F31.9 Bipolar disorder, unspecified; G89.4 Chronic pain syndrome; N40.1 Benign prostatic hyperplasia with lower urinary tract symptoms; E11.22 Type 2 diabetes mellitus with diabetic chronic kidney disease; F20.9 Schizophrenia, unspecified; F41.9 Anxiety disorder, unspecified; D63.8 Anemia in other chronic diseases classified elsewhere; I48.91 Unspecified atrial fibrillation; Z99.2 Dependence on renal dialysis; Z79.899 Other long term (current) drug therapy; Z82.49 Family history of ischemic heart disease and other diseases of the circulatory system; Z91.158 Patient's noncompliance with renal dialysis for other reason; Z91.199 Patient's noncompliance with other medical treatment and regimen due to unspecified reason; Z88.8 Allergy status to other drugs, medicaments and biological substances; Z68.23 Body mass index [BMI] 23.0-23.9, adult
CPT/HCPCS: 36415; 71045; 80053; 80061; 80307; 81001; 82270; 82607; 82746; 82962; 83036; 83540; 83550; 83735; 83880; 84132; 84443; 84484; 85014; 85018; 85025; 85610; 85730; 86850; 86900; 86901; 86920; 87040; 87081; 87086; 87340; 90935; 93005; 93306; 93970; 96365; 96375; G0378; J0153; J0696; J1642; J1815; J7060

== ENCOUNTER 2023-02-20 21:06 | Inpatient (IN) | payer BC, MEDICARE ==
[~2023-02-20] VITALS: Ht 177.8 cm; Wt 66.8 kg
[~2023-02-20 21:06] MED LIST changes: +AMIO200T13 PO; +HYDR-4902 PO; +LEVO500T91 PO; +PANT40TA2 PO
[2023-02-20 21:43] LABS: Basophils # (auto) 0.1 10 ^3/uL (0-0.2); Basophils % (auto) 1.1 % (0.0-2.0); Eosinophils # (auto) 0.5 10 ^3/uL (0-0.8); Eosinophils % (auto) 7.4 % (0.0-7.0); Hematocrit 32.8 % (41.0-53.0); Hemoglobin 10.7 g/dL (13.5-17.5); Lymphocytes % (auto) 14.2 % (10.0-50.0); Mean Corpuscular Hgb Conc. 32.6 g/dL (32.0-36.0); Mean Corpuscular Volume 91.9 fL (80.0-100.0); Monocytes % (auto) 13.5 % (0.0-12.0); Neutrophils # (auto) 4.6 10 ^3/uL (1.6-8.6); Neutrophils % (auto) 63.8 % (37.0-80.0); Nucleated Red Blood Cells % 0.2 %; Red Blood Cells 3.57 10^6/uL (4.5-5.90); White Blood Cell 7.1 10^3/uL (4.4-10.8)
[2023-02-20 21:55] LABS: Albumin 3.9 g/dL (3.4-5.0); Calcium 9.1 mg/dL (8.5-10.1)
[2023-02-20 21:59] LABS: BUN/Creatinine Ratio 8.9 (10.0-20.0); Bilirubin, Total 0.5 mg/dL (0.2-1.0); Total Protein 8.1 g/dL (6.4-8.2)
[2023-02-20 22:24] LABS: Potassium 5.6 mmol/L (3.5-5.1)
[2023-02-20 22:38] VITALS: PULSE 61; RESP 18; O2SAT 95
[2023-02-20] MEDS ORDERED: ALBUTEROL SULF 2.5 MG/0.5ML(0.5%) NEB SOLN NEB ONE (23:00)
[2023-02-20] MEDS ORDERED: SODIUM BICARBONATE 8.4 % INJ 50ML VIAL IV ONE (23:00)
[2023-02-20] MEDS ORDERED: DEXTROSE (50%) 50ML SYRG IV ONE (23:00)
[2023-02-20] MEDS ORDERED: InsuLIN REG 1unit/0.01ml Soln (100units/ml) IV ONE (23:00)
[2023-02-20] MEDS ORDERED: MORPHINE SULFATE INJ 2 MG/ml SYRG IV PRN (23:15)
[2023-02-20] MEDS ORDERED: ONDANSETRON HCL 4 MG/2 ML VIAL IV PRN (23:15)
[2023-02-20] MEDS ORDERED: hydrALAZINE HCL 10 MG TAB PO PRN (23:15)
[2023-02-20] MEDS ORDERED: ACETAMINOPHEN 325 MG TAB PO PRN (23:15)
[2023-02-20] MEDS: FUROSEMIDE 40 MG/4 ML VIAL IV SCH (23:24)
[2023-02-21] VITALS (7 sets, daily range): BP systolic 120–165; BP diastolic 68–92; PULSE 63–104; RESP 14–20; TEMP 97.6–98.3; O2SAT 91–98
[2023-02-21 00:03] LABS: Urine Bacteria NONE SEEN /hpf (None Seen); Urine Blood 1+ /uL (Negative); Urine Clarity HAZY (Clear); Urine Color Yellow (Yellow); Urine Protein, UAD 2+ (Negative); Urine Specific Gravity 1.013 (1.001-1.035); Urine Urobilinogen Normal (Negative); Urine WBC 137 /hpf (0 - 3); Urine pH 7.5 (5.0-8.0)
[2023-02-21 01:27] LABS: BUN/Creatinine Ratio 9.3 (10.0-20.0); Potassium 4.9 mmol/L (3.5-5.1)
[2023-02-21] MEDS ORDERED: PANTOPRAZOLE 40 MG/10 ML VIAL INJ IV ONE (02:45)
[2023-02-21] MEDS: HYDROcodone-ACET 5/325MG TAB PO PRN ×2 (04:22→21:35)
[2023-02-21 05:16] LABS: BUN/Creatinine Ratio 8.7 (10.0-20.0); Calcium 8.4 mg/dL (8.5-10.1); Potassium 4.8 mmol/L (3.5-5.1)
[2023-02-21] MEDS ORDERED: SODIUM CHL 0.9% 1000 ML BAG XX ONE (09:30)
[2023-02-21] MEDS: FUROSEMIDE 40 MG/4 ML VIAL IV SCH ×2 (10:00→14:30)
[2023-02-21 10:09] LABS: Hemoglobin 9.7 g/dL (13.5-17.5)
[2023-02-21 10:27] LABS: Magnesium 2.6 mg/dL (1.6-2.6)
[2023-02-21 10:41] LABS: Phosphorus 10.1 mg/dL (2.5-4.90)
[2023-02-21] MEDS ORDERED: ALBUMIN 25% 100 ML IV PRN (15:45)
[2023-02-21] MEDS: SEVELAMER 800 MG TAB PO SCH (18:30)
[2023-02-21] MEDS ORDERED: EPOETIN ALFA-EPBX 4,000 UNIT/ML VIAL SC ONE (21:00)
[2023-02-22] MEDS: HYDROcodone-ACET 5/325MG TAB PO PRN ×3 (04:49→15:56)
[2023-02-22 05:00] VITALS: BP 142/70; PULSE 65; RESP 16; TEMP 97.9; O2SAT 95
[2023-02-22 06:09] LABS: BUN/Creatinine Ratio 8.3 (10.0-20.0); Calcium 9.1 mg/dL (8.5-10.1); Potassium 4.7 mmol/L (3.5-5.1)
[2023-02-22 08:00] VITALS: PULSE 53
[2023-02-22] MEDS: SEVELAMER 800 MG TAB PO SCH ×2 (08:12→12:27)
[2023-02-22 09:00] VITALS: BP 150/86; PULSE 68; RESP 18; TEMP 98.2; O2SAT 94
[2023-02-22] MEDS ORDERED: PANTOPRAZOLE 40 MG/10 ML VIAL INJ IV SCH (10:00)
[2023-02-22] MEDS ORDERED: B-COMPLEX W/ C & FOLIC ACID(NEPHROVITE TAB) PO SCH (10:00)
[2023-02-22] MEDS: FUROSEMIDE 40 MG/4 ML VIAL IV SCH (10:03)
[2023-02-22 13:00] VITALS: BP 140/64; PULSE 63; RESP 18; TEMP 98.2; O2SAT 93
[2023-02-22 13:31] VITALS: BP 150/86; TEMP 36.8
[2023-02-22 17:00] VITALS: BP 134/91; PULSE 64; RESP 19; TEMP 98.5; O2SAT 94
[2023-02-22] MEDS ORDERED: AMOX500C2 PO (17:53)
[2023-02-23] MEDS ORDERED: SODIUM CHL 0.9% 1000 ML BAG XX ONE (07:00)
[2023-02-23] MEDS ORDERED: PNEUMOCOCCAL VACC POLYS 25 MCG/0.5 ML VIAL IM ONE (10:00)
[2023-02-23] MEDS ORDERED: EPOETIN ALFA-EPBX 10,000 UNIT/1ML VIAL SC ONE (21:00)
== END 2023-02-22 17:55 | disposition home health service (06) | DRG 291 ==
LOC: ER 21:06 → TELE 23:14 → TELE-CENTR 02-21 05:47
PROVIDERS: ADMIT Nurse Practitioner Family; ATTEND Internal Medicine
PROC: 5A1D70Z Performance of Urinary Filtration, Intermittent, Less than 6 Hours Per Day (ICD-10-PCS; principal; 2023-02-21)
DX: I13.2 Hypertensive heart and chronic kidney disease with heart failure and with stage 5 chronic kidney disease, or end stage renal disease (principal); I50.33 Acute on chronic diastolic (congestive) heart failure; N18.6 End stage renal disease; N39.0 Urinary tract infection, site not specified; E87.5 Hyperkalemia; B95.2 Enterococcus as the cause of diseases classified elsewhere; D63.1 Anemia in chronic kidney disease; E83.39 Other disorders of phosphorus metabolism; G89.4 Chronic pain syndrome; I48.91 Unspecified atrial fibrillation; N41.1 Chronic prostatitis; M54.50 Low back pain, unspecified; Z99.2 Dependence on renal dialysis; Z82.49 Family history of ischemic heart disease and other diseases of the circulatory system; Z87.891 Personal history of nicotine dependence
CPT/HCPCS: 36415; 71045; 80048; 80053; 81001; 82306; 83735; 83880; 83970; 84100; 84484; 85014; 85018; 85025; 87081; 87086; 87088; 87186; 87340; 90935; 93005; 94640; 96374; 96375; 97110; 97116; 97163; 97530; 99291; C9113; G0378; J1642; J1815; J2405; P9047

== ENCOUNTER 2023-03-02 18:17 | Emergency (ER) | payer BC ==
[~2023-03-02] VITALS: Ht 177.8 cm; Wt 61.2 kg
[~2023-03-02 18:17] MED LIST changes: +AMOX500C2 PO; -LEVO500T31 PO; -LEVO500T91 PO
[2023-03-02 18:45] LABS: Basophils # (auto) 0.1 10 ^3/uL (0-0.2); Eosinophils # (auto) 0.3 10 ^3/uL (0-0.8); Eosinophils % (auto) 3.8 % (0.0-7.0); Hematocrit 40.2 % (41.0-53.0); Hemoglobin 13.3 g/dL (13.5-17.5); Lymphocytes # (auto) 1.5 10 ^3/uL (0.4-5.4); Lymphocytes % (auto) 17.9 % (10.0-50.0); Mean Corpuscular Hemoglobin 29.7 pg (28.0-32.0); Mean Corpuscular Hgb Conc. 33.1 g/dL (32.0-36.0); Mean Corpuscular Volume 89.8 fL (80.0-100.0); Monocytes # (auto) 1.1 10 ^3/uL (0-1.3); Monocytes % (auto) 12.9 % (0.0-12.0); Neutrophils # (auto) 5.4 10 ^3/uL (1.6-8.6); Neutrophils % (auto) 64.4 % (37.0-80.0); Nucleated Red Blood Cells % 0.1 %; Red Blood Cells 4.48 10^6/uL (4.5-5.90); Red Cell Distribution Width 17.5 % (11.8-14.3); White Blood Cell 8.4 10^3/uL (4.4-10.8)
[2023-03-02 19:04] LABS: Partial Thromboplastin Time 26.3 SEC (24.5-34.5); Prothrombin Time 10.5 sec (9.3-11.8)
[2023-03-02 19:06] LABS: Alanine Aminotransferase 12 U/L (7-40); Albumin 4.7 g/dL (3.2-4.8); Alkaline Phosphatase 144 U/L (46-116); Anion Gap 9.8 (5-15); Aspartate Aminotransferase < 8 U/L (13-40); BUN/Creatinine Ratio 5.1 (10.0-20.0); Blood Urea Nitrogen 22 mg/dL (9-23); Calcium 9.6 mg/dL (8.7-10.4); Carbon Dioxide 25.2 mmol/L (20-30); Chloride 104 mmol/L (98-107); Glucose 97 mg/dL (74-106); Magnesium 2.6 mg/dL (1.6-2.6); Potassium 3.8 mmol/L (3.5-5.1); Sodium 139 mmol/L (136-145)
[2023-03-02 19:07] LABS: Bilirubin, Total 0.4 mg/dL (0.2-1.0); Total Protein 7.8 g/dL (5.7-8.2)
[2023-03-02 21:10] VITALS: BP 129/72; TEMP 98.3
[2023-03-02 22:07] VITALS: PULSE 54; RESP 18; O2SAT 97
== END 2023-03-02 22:08 | disposition home or self-care (01) ==
LOC: ER 18:17
DX: I13.2 Hypertensive heart and chronic kidney disease with heart failure and with stage 5 chronic kidney disease, or end stage renal disease (principal); N18.6 End stage renal disease; N17.9 Acute kidney failure, unspecified; R00.1 Bradycardia, unspecified; Z87.891 Personal history of nicotine dependence; Z88.8 Allergy status to other drugs, medicaments and biological substances; Z79.1 Long term (current) use of non-steroidal anti-inflammatories (NSAID); Z79.899 Other long term (current) drug therapy
CPT/HCPCS: 36415; 71045; 80053; 83735; 83880; 84443; 84484; 85025; 85610; 85730; 93005

== ENCOUNTER 2023-03-25 07:33 | Emergency (ER) | payer BC ==
[~2023-03-25] VITALS: Ht 177.8 cm; Wt 68.0 kg
[2023-03-25] MEDS ORDERED: NITROGLYCERIN 2% OINT 1GM PKG TD ONE (08:00)
[2023-03-25] MEDS ORDERED: cloNIDine 0.2 mg/24hr 7DAY PATCH TD ONE (08:00)
[2023-03-25] MEDS ORDERED: FUROSEMIDE 20 MG/2 ML VIAL IV ONE (08:00)
[2023-03-25 08:03] LABS: Basophils # (auto) 0.1 10 ^3/uL (0-0.2); Basophils % (auto) 0.7 % (0.0-2.0); Eosinophils # (auto) 0.8 10 ^3/uL (0-0.8); Eosinophils % (auto) 7.2 % (0.0-7.0); Hematocrit 36.6 % (41.0-53.0); Hemoglobin 11.8 g/dL (13.5-17.5); Lymphocytes # (auto) 1.2 10 ^3/uL (0.4-5.4); Lymphocytes % (auto) 10.9 % (10.0-50.0); Mean Corpuscular Hemoglobin 28.9 pg (28.0-32.0); Mean Corpuscular Hgb Conc. 32.1 g/dL (32.0-36.0); Mean Corpuscular Volume 90.1 fL (80.0-100.0); Monocytes # (auto) 0.7 10 ^3/uL (0-1.3); Monocytes % (auto) 6.5 % (0.0-12.0); Neutrophils # (auto) 8.4 10 ^3/uL (1.6-8.6); Neutrophils % (auto) 74.7 % (37.0-80.0); Nucleated Red Blood Cells % 0.1 %; Red Blood Cells 4.07 10^6/uL (4.5-5.90); Red Cell Distribution Width 17.6 % (11.8-14.3); White Blood Cell 11.3 10^3/uL (4.4-10.8)
[2023-03-25 08:05] VITALS: PULSE 83; RESP 20; O2SAT 99
[2023-03-25 08:20] LABS: Base Excess -9.2 mmol/L (-2.0-2.0)
[2023-03-25 08:25] LABS: INR 0.96 (0.9-1.15); Partial Thromboplastin Time 26.9 SEC (24.5-34.5); Prothrombin Time 10.1 sec (9.3-11.8)
[2023-03-25] MEDS ORDERED: ONDANSETRON HCL 4 MG/2 ML VIAL IV ONE (09:30)
[2023-03-25] MEDS ORDERED: MORPHINE SULFATE INJ 2 MG/ml SYRG IV ONE (09:30)
[2023-03-25 10:21] LABS: Urine Bacteria NONE SEEN /hpf (None Seen); Urine Blood Negative /uL (Negative); Urine Clarity Clear (Clear); Urine Color Colorless (Yellow); Urine Protein, UAD 2+ (Negative); Urine Specific Gravity 1.011 (1.001-1.035); Urine Urobilinogen Normal (Negative); Urine WBC 44 /hpf (0 - 3)
[2023-03-25] MEDS ORDERED: BUMETANIDE 2.5mg/10ml (0.25 mg/ml) INJ IV ONE (10:30)
[2023-03-25 11:27] LABS: Alanine Aminotransferase 12 U/L (7-40); Albumin 4.4 g/dL (3.2-4.8); Alkaline Phosphatase 142 U/L (46-116); Aspartate Aminotransferase < 8 U/L (13-40); BUN/Creatinine Ratio 9.6 (10.0-20.0); Blood Urea Nitrogen 54 mg/dL (9-23); Calcium 9.5 mg/dL (8.5-10.1); Carbon Dioxide 16 mmol/L (20-30); Glucose 116 mg/dL (74-106)
[2023-03-25 11:28] LABS: Bilirubin, Total 0.2 mg/dL (0.2-1.0); Total Protein 7.1 g/dL (5.7-8.2)
[2023-03-25] MEDS ORDERED: ACETAMINOPHEN 500 MG TAB PO ONE (11:30)
[2023-03-25 11:57] LABS: Anion Gap 15 (5-15); Chloride 110 mmol/L (98-107); Sodium 141 mmol/L (136-145)
[2023-03-25 12:56] LABS: Potassium 5.6 mmol/L (3.5-5.1)
[2023-03-25] MEDS ORDERED: NIFE1TAB31 PO (14:48)
[2023-03-25 15:17] VITALS: BP 165/96; PULSE 87; RESP 13; TEMP 97.9; O2SAT 92
== END 2023-03-25 15:33 | disposition home or self-care (01) ==
LOC: ER 07:33
DX: I13.2 Hypertensive heart and chronic kidney disease with heart failure and with stage 5 chronic kidney disease, or end stage renal disease (principal); N18.6 End stage renal disease; I50.9 Heart failure, unspecified; J44.9 Chronic obstructive pulmonary disease, unspecified; E87.5 Hyperkalemia; F17.210 Nicotine dependence, cigarettes, uncomplicated; Z98.890 Other specified postprocedural states
CPT/HCPCS: 36415; 36600; 51702; 71045; 80053; 81001; 82805; 83880; 84484; 85025; 85610; 85730; 93005; 96374; 96375; 99291; J1940; J2270; J2405; 90935

== ENCOUNTER 2023-05-08 19:08 | Emergency (ER) | payer BC ==
[~2023-05-08 19:08] MED LIST changes: +NIFE1TAB31 PO
== END 2023-05-08 20:18 | disposition left against medical advice (07) ==
LOC: ER 19:08
DX: M79.629 Pain in unspecified upper arm (principal); Z53.21 Procedure and treatment not carried out due to patient leaving prior to being seen by health care provider

== ENCOUNTER 2023-05-21 04:06 | Emergency (ER) | payer BC ==
[~2023-05-21] VITALS: Ht 177.8 cm; Wt 72.7 kg
[2023-05-21 06:10] VITALS: PULSE 86; RESP 11; O2SAT 97
[2023-05-21 06:50] LABS: Urine Bacteria MOD /hpf (None Seen); Urine Blood 1+ /uL (Negative); Urine Budding Yeast MODERATE /hpf (None Seen); Urine Clarity CLOUDY (Clear); Urine Color Colorless (Yellow); Urine Mucus FEW (None Seen); Urine Protein, UAD 2+ (Negative); Urine Specific Gravity 1.014 (1.001-1.035); Urine Urobilinogen Normal (Negative); Urine WBC 227 /hpf (0 - 3); Urine WBC Clumps PRESENT /hpf (None Seen); Urine pH 7.5 (5.0-8.0)
[2023-05-21] MEDS ORDERED: BACDST PO (06:53)
[2023-05-21] MEDS ORDERED: cefTRIAXone 1GM/50ML D5W 50 ML IV ONE (07:00)
[2023-05-21] MEDS ORDERED: HYDROcodone-ACET 10/325MG TAB PO ONE (07:00)
[2023-05-21] MEDS ORDERED: HYDROcodone-ACET 5/325MG TAB PO ONE (07:15)
[2023-05-21 07:30] VITALS: PULSE 77; RESP 16; O2SAT 95
[2023-05-21 07:35] LABS: Basophils # (auto) 0.1 10 ^3/uL (0-0.2); Basophils % (auto) 1.2 % (0.0-2.0); Eosinophils # (auto) 0.3 10 ^3/uL (0-0.8); Eosinophils % (auto) 5.1 % (0.0-7.0); Hematocrit 34.8 % (41.0-53.0); Hemoglobin 11.6 g/dL (13.5-17.5); Lymphocytes # (auto) 0.9 10 ^3/uL (0.4-5.4); Lymphocytes % (auto) 13.7 % (10.0-50.0); Mean Corpuscular Hemoglobin 31.5 pg (28.0-32.0); Mean Corpuscular Hgb Conc. 33.2 g/dL (32.0-36.0); Mean Corpuscular Volume 94.7 fL (80.0-100.0); Monocytes # (auto) 0.7 10 ^3/uL (0-1.3); Monocytes % (auto) 10.5 % (0.0-12.0); Neutrophils # (auto) 4.5 10 ^3/uL (1.6-8.6); Neutrophils % (auto) 69.5 % (37.0-80.0); Red Blood Cells 3.68 10^6/uL (4.5-5.90); White Blood Cell 6.4 10^3/uL (4.4-10.8)
[2023-05-21 07:40] LABS: Red Cell Distribution Width 20.2 % (11.8-14.3)
[2023-05-21 07:58] LABS: Albumin 4.5 g/dL (3.2-4.8); Alkaline Phosphatase 122 U/L (46-116); Anion Gap 12 (5-15); Aspartate Aminotransferase < 8 U/L (13-40); BUN/Creatinine Ratio 5.8 (10.0-20.0); Bilirubin, Total 0.2 mg/dL (0.2-1.0); Blood Urea Nitrogen 33 mg/dL (9-23); Calcium 8.9 mg/dL (8.5-10.1); Carbon Dioxide 23 mmol/L (20-30); Chloride 107 mmol/L (98-107); Glucose 99 mg/dL (74-106); Potassium 5.1 mmol/L (3.5-5.1); Sodium 142 mmol/L (136-145); Total Protein 7.1 g/dL (5.7-8.2)
[2023-05-21 08:00] VITALS: TEMP 98.3
[2023-05-21 08:00] LABS: Alanine Aminotransferase < 9 U/L (7-40)
[2023-05-21 15:55] VITALS: BP 140/81; PULSE 72; RESP 17; O2SAT 97
== END 2023-05-21 16:14 | disposition home or self-care (01) ==
LOC: ER 04:06
DX: N39.0 Urinary tract infection, site not specified (principal); I13.2 Hypertensive heart and chronic kidney disease with heart failure and with stage 5 chronic kidney disease, or end stage renal disease; N18.6 End stage renal disease; I50.9 Heart failure, unspecified; F17.210 Nicotine dependence, cigarettes, uncomplicated; Z99.2 Dependence on renal dialysis
CPT/HCPCS: 36415; 74176; 80053; 81001; 85025; 87086; 96365; 99285; J0696; 51702

== ENCOUNTER 2023-05-22 15:10 | Inpatient (IN) | payer BC ==
[~2023-05-22] VITALS: Ht 177.8 cm; Wt 75.7 kg
[~2023-05-22 15:10] MED LIST changes: +BACDST PO
[2023-05-22 16:59] LABS: Basophils # (auto) 0 10 ^3/uL (0-0.2); Basophils % (auto) 0.6 % (0.0-2.0); Eosinophils # (auto) 0 10 ^3/uL (0-0.8); Eosinophils % (auto) 0.1 % (0.0-7.0); Hematocrit 35.7 % (41.0-53.0); Hemoglobin 11.6 g/dL (13.5-17.5); Lymphocytes # (auto) 0.3 10 ^3/uL (0.4-5.4); Mean Corpuscular Hemoglobin 31.3 pg (28.0-32.0); Mean Corpuscular Hgb Conc. 32.6 g/dL (32.0-36.0); Mean Corpuscular Volume 96.2 fL (80.0-100.0); Monocytes # (auto) 0.5 10 ^3/uL (0-1.3); Monocytes % (auto) 6.6 % (0.0-12.0); Neutrophils # (auto) 6.5 10 ^3/uL (1.6-8.6); Neutrophils % (auto) 88.7 % (37.0-80.0); Red Blood Cells 3.72 10^6/uL (4.5-5.90); Red Cell Distribution Width 19.9 % (11.8-14.3); White Blood Cell 7.4 10^3/uL (4.4-10.8)
[2023-05-22 17:18] LABS: Albumin 4.7 g/dL (3.2-4.8); Alkaline Phosphatase 118 U/L (46-116); Anion Gap 13 (5-15); Aspartate Aminotransferase < 8 U/L (13-40); BUN/Creatinine Ratio 6.5 (10.0-20.0); Bilirubin, Total < 0.2 mg/dL (0.2-1.0); Calcium 9.3 mg/dL (8.5-10.1); Carbon Dioxide 18 mmol/L (20-30); Chloride 110 mmol/L (98-107); Glucose 111 mg/dL (74-106); Sodium 141 mmol/L (136-145); Total Protein 7.2 g/dL (5.7-8.2)
[2023-05-22 17:22] LABS: Alanine Aminotransferase < 9 U/L (7-40); Blood Urea Nitrogen 46 mg/dL (9-23)
[2023-05-22 17:26] LABS: Potassium 5.7 mmol/L (3.5-5.1)
[2023-05-22 17:35] VITALS: PULSE 85; RESP 14; O2SAT 99
[2023-05-22] MEDS ORDERED: DEXTROSE (50%) 50ML SYRG IV ONE ×2 (17:45→22:15)
[2023-05-22] MEDS ORDERED: SODIUM ZIRCONIUM CYCL 10 GM PAK PO ONE (17:45)
[2023-05-22] MEDS ORDERED: FUROSEMIDE 40 MG/4 ML VIAL IV ONE (17:45)
[2023-05-22] MEDS ORDERED: CALCIUM GLUC 1,000mg/50ml-NS 50 ML IV ONE (17:45)
[2023-05-22] MEDS ORDERED: InsuLIN REG 1unit/0.01ml Soln (100units/ml) IV ONE ×2 (17:45→22:15)
[2023-05-22] MEDS ORDERED: ALBUTEROL SULF 2.5 MG/0.5ML(0.5%) NEB SOLN NEB ONE (17:45)
[2023-05-22] MEDS ORDERED: SODIUM BICARBONATE 8.4% INJ 50ML SYRINGE IV ONE (17:45)
[2023-05-22 18:14] LABS: Urine Bacteria NONE SEEN /hpf (None Seen); Urine Blood TRACE /uL (Negative); Urine Clarity Clear (Clear); Urine Color Colorless (Yellow); Urine Protein, UAD 2+ (Negative); Urine Urobilinogen Normal (Negative); Urine WBC 22 /hpf (0 - 3); Urine pH 8.5 (5.0-8.0)
[2023-05-22 18:28] LABS: Amphetamine Screen, Urine Neg (NEGATIVE); Barbiturate Scree,Urine Neg (NEGATIVE); Benzodiazephine Screen, Urine Neg (NEGATIVE); Cannabinoid Screen, Urine Neg (NEGATIVE); Cocaine Screen, Urine Neg (NEGATIVE); Opiate Scree,Urine Neg (NEGATIVE); Phencyclidine Screen, Urine Neg (NEGATIVE)
[2023-05-22 20:00] VITALS: RESP 16; O2SAT 98
[2023-05-22] MEDS ORDERED: HALOPERIDOL LACTATE 5 MG/ML INJ VIAL IM ONE (21:00)
[2023-05-22] MEDS ORDERED: diphenhdrAMINE HCL 50 MG/1 ML VL IV ONE (21:00)
[2023-05-22] MEDS ORDERED: PIPERACILLIN-TAZOB 3.375GM 100 ML IV ONE (22:15)
[2023-05-22] MEDS ORDERED: ACETAMINOPHEN 325 MG TAB PO PRN (22:45)
[2023-05-22] MEDS ORDERED: hydrALAZINE HCL 10 MG TAB PO PRN (22:45)
[2023-05-22] MEDS ORDERED: ONDANSETRON HCL 4 MG/2 ML VIAL IV PRN (22:45)
[2023-05-22 23:54] LABS: Chloride 111 mmol/L (98-107); Sodium 140 mmol/L (136-145)
[2023-05-22 23:55] LABS: Anion Gap 14 (5-15); Carbon Dioxide 15 mmol/L (20-30)
[2023-05-22 23:56] LABS: Calcium 8.7 mg/dL (8.7-10.4)
[2023-05-23 00:01] LABS: BUN/Creatinine Ratio 5.4 (10.0-20.0); Blood Urea Nitrogen 40 mg/dL (9-23)
[2023-05-23 00:04] LABS: Glucose 278 mg/dL (74-106)
[2023-05-23 04:54] LABS: Chloride 112 mmol/L (98-107); Potassium 5.5 mmol/L (3.5-5.1); Sodium 143 mmol/L (136-145)
[2023-05-23 04:55] LABS: Anion Gap 15 (5-15); Calcium 9.2 mg/dL (8.7-10.4); Carbon Dioxide 16 mmol/L (20-30)
[2023-05-23 05:28] LABS: Blood Urea Nitrogen 51 mg/dL (9-23); Glucose 124 mg/dL (74-106)
[2023-05-23 05:42] LABS: BUN/Creatinine Ratio 6.5 (10.0-20.0)
[2023-05-23 08:00] VITALS: PULSE 87; RESP 21; O2SAT 96
[2023-05-23] MEDS ORDERED: cefTRIAXone 1GM/50ML D5W 50 ML IV SCH (10:00)
[2023-05-23] MEDS: HYDROcodone-ACET 5/325MG TAB PO PRN ×2 (15:13→21:22)
[2023-05-23] MEDS: ALPRAZolam 0.5 MG TAB PO PRN ×2 (17:30→23:40)
[2023-05-23] MEDS: LINEZOLID 600MG/300ML 300 ML IV SCH (17:30)
[2023-05-23 20:10] VITALS: PULSE 78; RESP 26; O2SAT 95
[2023-05-23] MEDS ORDERED: ALPRAZolam 0.5 MG TAB PO SCH (22:00)
[2023-05-24] VITALS (13 sets, daily range): BP systolic 97–140; BP diastolic 49–80; PULSE 60–89; RESP 18–20; TEMP 98.2–98.7; O2SAT 96–99
[2023-05-24] MEDS ORDERED: TAMS0.4C36 PO (02:30)
[2023-05-24] MEDS: HYDROcodone-ACET 5/325MG TAB PO PRN ×2 (03:44→18:43)
[2023-05-24] MEDS: LINEZOLID 600MG/300ML 300 ML IV SCH ×2 (05:14→18:06)
[2023-05-24 06:01] LABS: Basophils # (auto) 0.1 10 ^3/uL (0-0.2); Basophils % (auto) 0.8 % (0.0-2.0); Eosinophils # (auto) 0.3 10 ^3/uL (0-0.8); Hematocrit 32.9 % (41.0-53.0); Hemoglobin 10.8 g/dL (13.5-17.5); Lymphocytes # (auto) 1.5 10 ^3/uL (0.4-5.4); Lymphocytes % (auto) 17.1 % (10.0-50.0); Mean Corpuscular Hemoglobin 32.2 pg (28.0-32.0); Mean Corpuscular Hgb Conc. 32.8 g/dL (32.0-36.0); Mean Corpuscular Volume 98.2 fL (80.0-100.0); Monocytes # (auto) 1.1 10 ^3/uL (0-1.3); Monocytes % (auto) 12.8 % (0.0-12.0); Neutrophils # (auto) 5.6 10 ^3/uL (1.6-8.6); Neutrophils % (auto) 65.3 % (37.0-80.0); Nucleated Red Blood Cells % 0.1 %; Red Blood Cells 3.35 10^6/uL (4.5-5.90); Red Cell Distribution Width 19.7 % (11.8-14.3); White Blood Cell 8.6 10^3/uL (4.4-10.8)
[2023-05-24 06:07] LABS: Chloride 108 mmol/L (98-107); Sodium 139 mmol/L (136-145)
[2023-05-24 06:12] LABS: Potassium 6.3 mmol/L (3.5-5.1)
[2023-05-24 06:13] LABS: Glucose 113 mg/dL (74-106)
[2023-05-24 06:14] LABS: BUN/Creatinine Ratio 9.7 (10.0-20.0)
[2023-05-24 06:16] LABS: Blood Urea Nitrogen 80 mg/dL (9-23)
[2023-05-24] MEDS ORDERED: SODIUM CHL 0.9% 1000 ML BAG XX ONE (07:00)
[2023-05-24 07:42] LABS: Anion Gap 16 (5-15); Carbon Dioxide 15 mmol/L (20-30)
[2023-05-24] MEDS: cefTRIAXone 1GM/50ML D5W 50 ML IV SCH (09:33)
[2023-05-24] MEDS ORDERED: CALCIUM GLUC 1,000mg/50ml-NS 50 ML IV ONE (10:15)
[2023-05-24] MEDS ORDERED: InsuLIN REG 1unit/0.01ml Soln (100units/ml) IV ONE (10:15)
[2023-05-24] MEDS ORDERED: DEXTROSE (50%) 50ML SYRG IV ONE (10:15)
[2023-05-24] MEDS ORDERED: FUROSEMIDE 20 MG/2 ML VIAL IV ONE (10:15)
[2023-05-24] MEDS ORDERED: ALBUTEROL SULF 2.5 MG/0.5ML(0.5%) NEB SOLN NEB ONE ×2 (10:15→15:30)
[2023-05-24] MEDS ORDERED: SODIUM BICARBONATE 8.4% INJ 50ML SYRINGE IV ONE ×2 (10:15→15:30)
[2023-05-24] MEDS ORDERED: HALOPERIDOL LACTATE 5 MG/ML INJ VIAL IM PRN (10:45)
[2023-05-24] MEDS: SODIUM ZIRCONIUM CYCL 10 GM PAK PO SCH ×2 (13:59→21:30)
[2023-05-24] MEDS: TAMSULOSIN HYDROCHLORIDE 0.4 MG CAP PO SCH (18:43)
[2023-05-24] MEDS: ALPRAZolam 0.5 MG TAB PO PRN (20:20)
[2023-05-25 05:00] VITALS: BP 129/64; PULSE 70; RESP 16; TEMP 98.3; O2SAT 98
[2023-05-25] MEDS: HYDROcodone-ACET 5/325MG TAB PO PRN ×3 (05:25→22:42)
[2023-05-25] MEDS: SODIUM ZIRCONIUM CYCL 10 GM PAK PO SCH ×2 (05:26→13:22)
[2023-05-25] MEDS: LINEZOLID 600MG/300ML 300 ML IV SCH ×2 (05:26→15:53)
[2023-05-25 06:48] LABS: Basophils # (auto) 0 10 ^3/uL (0-0.2); Basophils % (auto) 0.7 % (0.0-2.0); Eosinophils # (auto) 0.3 10 ^3/uL (0-0.8); Eosinophils % (auto) 5.1 % (0.0-7.0); Hematocrit 29.7 % (41.0-53.0); Hemoglobin 9.8 g/dL (13.5-17.5); Lymphocytes % (auto) 16.6 % (10.0-50.0); Mean Corpuscular Hemoglobin 31.7 pg (28.0-32.0); Mean Corpuscular Volume 95.9 fL (80.0-100.0); Monocytes # (auto) 0.9 10 ^3/uL (0-1.3); Monocytes % (auto) 14.8 % (0.0-12.0); Neutrophils # (auto) 3.9 10 ^3/uL (1.6-8.6); Neutrophils % (auto) 62.8 % (37.0-80.0); Nucleated Red Blood Cells % 0.1 %; Red Cell Distribution Width 18.8 % (11.8-14.3); White Blood Cell 6.2 10^3/uL (4.4-10.8)
[2023-05-25 08:00] VITALS: PULSE 88
[2023-05-25] MEDS: cefTRIAXone 1GM/50ML D5W 50 ML IV SCH (08:20)
[2023-05-25 08:21] LABS: Anion Gap 11 (5-15); BUN/Creatinine Ratio 8.9 (10.0-20.0); Blood Urea Nitrogen 54 mg/dL (9-23); Calcium 9.3 mg/dL (8.7-10.4); Carbon Dioxide 23 mmol/L (20-30); Chloride 104 mmol/L (98-107); Glucose 106 mg/dL (74-106); Potassium 4.8 mmol/L (3.5-5.1); Sodium 138 mmol/L (136-145)
[2023-05-25] MEDS: ALPRAZolam 0.5 MG TAB PO PRN ×2 (08:30→22:42)
[2023-05-25 08:43] VITALS: BP 122/80; PULSE 86; RESP 17; TEMP 98.9; O2SAT 96
[2023-05-25] MEDS: TAMSULOSIN HYDROCHLORIDE 0.4 MG CAP PO SCH (17:09)
[2023-05-25 20:00] VITALS: PULSE 89
[2023-05-25 22:00] VITALS: BP 119/67; PULSE 79; RESP 16; TEMP 98.7; O2SAT 98
[2023-05-26] MEDS: LINEZOLID 600MG/300ML 300 ML IV SCH ×2 (04:59→17:05)
[2023-05-26] MEDS: HYDROcodone-ACET 5/325MG TAB PO PRN ×2 (04:59→21:34)
[2023-05-26 05:00] VITALS: BP 113/65; PULSE 75; RESP 20; TEMP 98.4; O2SAT 18
[2023-05-26 05:47] LABS: Carbon Dioxide 20 mmol/L (20-30)
[2023-05-26 05:49] LABS: Calcium 9.9 mg/dL (8.7-10.4)
[2023-05-26 05:53] LABS: Glucose 102 mg/dL (74-106)
[2023-05-26 05:54] LABS: BUN/Creatinine Ratio 9.7 (10.0-20.0)
[2023-05-26 06:06] LABS: Anion Gap 13 (5-15); Chloride 105 mmol/L (98-107); Sodium 138 mmol/L (136-145)
[2023-05-26 06:56] LABS: Blood Urea Nitrogen 70 mg/dL (9-23)
[2023-05-26 06:59] LABS: Potassium 6.2 mmol/L (3.5-5.1)
[2023-05-26 08:00] VITALS: PULSE 78
[2023-05-26] MEDS: ALPRAZolam 0.5 MG TAB PO PRN ×2 (08:35→21:33)
[2023-05-26] MEDS: cefTRIAXone 1GM/50ML D5W 50 ML IV SCH (08:55)
[2023-05-26] MEDS: TAMSULOSIN HYDROCHLORIDE 0.4 MG CAP PO SCH (17:05)
[2023-05-26 20:17] VITALS: PULSE 89; RESP 16; O2SAT 97
[2023-05-27] MEDS: HYDROcodone-ACET 5/325MG TAB PO PRN ×2 (03:53→10:07)
[2023-05-27 05:06] VITALS: BP 121/67; PULSE 72; RESP 20; TEMP 98.2; O2SAT 95
[2023-05-27 06:00] LABS: Chloride 106 mmol/L (98-107); Potassium 4.8 mmol/L (3.5-5.1); Sodium 140 mmol/L (136-145)
[2023-05-27 06:01] LABS: Anion Gap 9 (5-15); Calcium 9.2 mg/dL (8.7-10.4); Carbon Dioxide 25 mmol/L (20-30)
[2023-05-27 06:06] LABS: Glucose 151 mg/dL (74-106)
[2023-05-27 06:16] LABS: Blood Urea Nitrogen 48 mg/dL (9-23)
[2023-05-27] MEDS: LINEZOLID 600MG/300ML 300 ML IV SCH (07:35)
[2023-05-27 08:00] VITALS: PULSE 73; PULSE 85; RESP 18; O2SAT 97
[2023-05-27 08:44] VITALS: BP 145/85; PULSE 75; RESP 19; TEMP 98.8; O2SAT 96
[2023-05-27] MEDS: ALPRAZolam 0.5 MG TAB PO PRN (10:07)
[2023-05-27] MEDS: cefTRIAXone 1GM/50ML D5W 50 ML IV SCH (10:13)
[2023-05-27 10:37] LABS: Basophils # (auto) 0 10 ^3/uL (0-0.2); Basophils % (auto) 0.6 % (0.0-2.0); Eosinophils # (auto) 0.3 10 ^3/uL (0-0.8); Eosinophils % (auto) 6.5 % (0.0-7.0); Hematocrit 26.7 % (41.0-53.0); Hemoglobin 9.1 g/dL (13.5-17.5); Lymphocytes % (auto) 18.8 % (10.0-50.0); Mean Corpuscular Hgb Conc. 34.1 g/dL (32.0-36.0); Mean Corpuscular Volume 96.7 fL (80.0-100.0); Monocytes # (auto) 0.8 10 ^3/uL (0-1.3); Monocytes % (auto) 14.6 % (0.0-12.0); Neutrophils # (auto) 3.2 10 ^3/uL (1.6-8.6); Neutrophils % (auto) 59.5 % (37.0-80.0); Red Blood Cells 2.76 10^6/uL (4.5-5.90); Red Cell Distribution Width 17.9 % (11.8-14.3); White Blood Cell 5.3 10^3/uL (4.4-10.8)
[2023-05-27 12:30] VITALS: BP 128/75; PULSE 71; RESP 18; TEMP 98.5; O2SAT 95
[2023-05-27 12:58] VITALS: BP 128/75; PULSE 71; RESP 18; TEMP 97.8; O2SAT 95
[2023-05-27 13:28] VITALS: BP 128/75; PULSE 71; RESP 18; TEMP 97.8; O2SAT 95
== END 2023-05-27 15:30 | disposition home or self-care (01) | DRG 698 ==
LOC: EDBD 15:10 → ER 15:10 → TELE 22:52 → TELE-WESTW 05-23 23:48
PROVIDERS: ADMIT Nurse Practitioner Family; ATTEND Nurse Practitioner Family
PROC: 5A1D70Z Performance of Urinary Filtration, Intermittent, Less than 6 Hours Per Day (ICD-10-PCS; principal; 2023-05-24)
PROC: 5A1D70Z Performance of Urinary Filtration, Intermittent, Less than 6 Hours Per Day (ICD-10-PCS; 2023-05-26)
DX: T83.511A Infection and inflammatory reaction due to indwelling urethral catheter, initial encounter (principal); G93.41 Metabolic encephalopathy; N18.6 End stage renal disease; E87.20 Acidosis, unspecified; I13.2 Hypertensive heart and chronic kidney disease with heart failure and with stage 5 chronic kidney disease, or end stage renal disease; N39.0 Urinary tract infection, site not specified; N40.0 Benign prostatic hyperplasia without lower urinary tract symptoms; F20.9 Schizophrenia, unspecified; E87.5 Hyperkalemia; D63.1 Anemia in chronic kidney disease; E11.22 Type 2 diabetes mellitus with diabetic chronic kidney disease; E11.65 Type 2 diabetes mellitus with hyperglycemia; F17.210 Nicotine dependence, cigarettes, uncomplicated; F31.9 Bipolar disorder, unspecified; I50.9 Heart failure, unspecified; N40.1 Benign prostatic hyperplasia with lower urinary tract symptoms; Z82.49 Family history of ischemic heart disease and other diseases of the circulatory system; Z88.8 Allergy status to other drugs, medicaments and biological substances
CPT/HCPCS: 36415; 70450; 71045; 80048; 80053; 80307; 81001; 82962; 83605; 84132; 85025; 87040; 87086; 90935; 93005; 94640; 97110; 97116; 97163; 97530; 99291; G0378; J0696; J1642; J1815; J2405; J2543

== ENCOUNTER 2023-05-30 10:04 | Emergency (ER) | payer BC ==
[~2023-05-30] VITALS: Ht 175.3 cm; Wt 70.0 kg
[~2023-05-30 10:04] MED LIST changes: -AMOX500C2 PO; -BACDST PO; +TAMS0.4C36 PO
[2023-05-30 10:51] LABS: Chloride 103 mmol/L (98-107); Potassium 4.3 mmol/L (3.5-5.1); Sodium 138 mmol/L (136-145)
[2023-05-30 10:52] LABS: Anion Gap 16 (5-15); Carbon Dioxide 19 mmol/L (20-30)
[2023-05-30 10:53] LABS: Calcium 8.6 mg/dL (8.5-10.1)
[2023-05-30 10:54] LABS: Basophils # (auto) 0.1 10 ^3/uL (0-0.2); Basophils % (auto) 1.4 % (0.0-2.0); Eosinophils # (auto) 0.3 10 ^3/uL (0-0.8); Eosinophils % (auto) 4.8 % (0.0-7.0); Hematocrit 29.2 % (41.0-53.0); Hemoglobin 9.4 g/dL (13.5-17.5); Lymphocytes # (auto) 0.9 10 ^3/uL (0.4-5.4); Lymphocytes % (auto) 15.2 % (10.0-50.0); Mean Corpuscular Hemoglobin 32.1 pg (28.0-32.0); Mean Corpuscular Hgb Conc. 32.1 g/dL (32.0-36.0); Mean Corpuscular Volume 99.9 fL (80.0-100.0); Monocytes # (auto) 0.7 10 ^3/uL (0-1.3); Monocytes % (auto) 12.1 % (0.0-12.0); Neutrophils % (auto) 66.5 % (37.0-80.0); Red Blood Cells 2.93 10^6/uL (4.5-5.90); Red Cell Distribution Width 16.9 % (11.8-14.3); White Blood Cell 6.1 10^3/uL (4.4-10.8)
[2023-05-30 10:57] LABS: Glucose 110 mg/dL (74-106)
[2023-05-30 10:58] LABS: Blood Alcohol < 3.0 mg/dL (<10); Blood Urea Nitrogen 36 mg/dL (9-23)
[2023-05-30] MEDS: OLANZapine 5 MG TAB PO SCH (18:26)
[2023-05-30 19:45] VITALS: PULSE 88; RESP 18; O2SAT 98
[2023-05-31] MEDS: OLANZapine 5 MG TAB PO SCH ×3 (00:24→22:24)
[2023-05-31 07:36] VITALS: PULSE 71; RESP 16; O2SAT 97
[2023-05-31 09:08] LABS: Basophils # (auto) 0.1 10 ^3/uL (0-0.2); Eosinophils # (auto) 0.5 10 ^3/uL (0-0.8); Eosinophils % (auto) 6.8 % (0.0-7.0); Hemoglobin 9.2 g/dL (13.5-17.5); Lymphocytes # (auto) 0.9 10 ^3/uL (0.4-5.4); Lymphocytes % (auto) 13.1 % (10.0-50.0); Mean Corpuscular Hemoglobin 32.2 pg (28.0-32.0); Mean Corpuscular Volume 97.6 fL (80.0-100.0); Monocytes % (auto) 14.3 % (0.0-12.0); Neutrophils # (auto) 4.3 10 ^3/uL (1.6-8.6); Neutrophils % (auto) 64.8 % (37.0-80.0); Nucleated Red Blood Cells % 0.1 %; Red Blood Cells 2.87 10^6/uL (4.5-5.90); Red Cell Distribution Width 16.8 % (11.8-14.3); White Blood Cell 6.7 10^3/uL (4.4-10.8)
[2023-05-31 09:15] LABS: Alanine Aminotransferase 16 U/L (7-40); Albumin 4.7 g/dL (3.2-4.8); Alkaline Phosphatase 115 U/L (46-116); Anion Gap 14 (5-15); Aspartate Aminotransferase 12 U/L (13-40); BUN/Creatinine Ratio 6.1 (10.0-20.0); Carbon Dioxide 21 mmol/L (20-30); Chloride 106 mmol/L (98-107); Glucose 113 mg/dL (74-106); INR 0.98 (0.9-1.15); Partial Thromboplastin Time 27.4 SEC (24.5-34.5); Potassium 4.9 mmol/L (3.5-5.1); Prothrombin Time 10.3 sec (9.3-11.8); Sodium 141 mmol/L (136-145)
[2023-05-31 09:16] LABS: Bilirubin, Total 0.2 mg/dL (0.2-1.0); Blood Urea Nitrogen 49 mg/dL (9-23); Total Protein 7.1 g/dL (5.7-8.2)
[2023-05-31] MEDS ORDERED: LORazepam 2MG/ML-1ML VIAL IM ONE (15:00)
[2023-05-31] MEDS ORDERED: diphenhdrAMINE HCL 50 MG/1 ML VL IM ONE (15:00)
[2023-05-31 19:50] VITALS: PULSE 69; RESP 14; O2SAT 99
[2023-05-31 21:07] LABS: Basophils # (auto) 0.1 10 ^3/uL (0-0.2); Basophils % (auto) 0.8 % (0.0-2.0); Eosinophils # (auto) 0.4 10 ^3/uL (0-0.8); Eosinophils % (auto) 6.6 % (0.0-7.0); Hematocrit 26.2 % (41.0-53.0); Hemoglobin 8.5 g/dL (13.5-17.5); Lymphocytes # (auto) 0.7 10 ^3/uL (0.4-5.4); Lymphocytes % (auto) 10.8 % (10.0-50.0); Mean Corpuscular Hemoglobin 32.3 pg (28.0-32.0); Mean Corpuscular Hgb Conc. 32.4 g/dL (32.0-36.0); Mean Corpuscular Volume 99.7 fL (80.0-100.0); Monocytes # (auto) 0.8 10 ^3/uL (0-1.3); Monocytes % (auto) 12.2 % (0.0-12.0); Neutrophils # (auto) 4.6 10 ^3/uL (1.6-8.6); Neutrophils % (auto) 69.6 % (37.0-80.0); Red Blood Cells 2.63 10^6/uL (4.5-5.90); White Blood Cell 6.6 10^3/uL (4.4-10.8)
[2023-05-31 21:12] LABS: Alanine Aminotransferase 17 U/L (7-40); Albumin 4.3 g/dL (3.2-4.8); Alkaline Phosphatase 116 U/L (46-116); Anion Gap 12 (5-15); Aspartate Aminotransferase 10 U/L (13-40); BUN/Creatinine Ratio 7.4 (10.0-20.0); Calcium 9.4 mg/dL (8.5-10.1); Carbon Dioxide 20 mmol/L (20-30); Chloride 110 mmol/L (98-107); Glucose 149 mg/dL (74-106); Potassium 4.9 mmol/L (3.5-5.1); Sodium 142 mmol/L (136-145)
[2023-05-31 21:13] LABS: Bilirubin, Total 0.2 mg/dL (0.2-1.0); Total Protein 6.2 g/dL (5.7-8.2)
[2023-05-31 21:14] LABS: Blood Urea Nitrogen 62 mg/dL (9-23)
[2023-06-01] MEDS ORDERED: HYDROcodone-ACET 5/325MG TAB PO ONE (01:30)
[2023-06-01] MEDS: OLANZapine 5 MG TAB PO SCH ×2 (07:39→22:00)
[2023-06-02] MEDS: OLANZapine 5 MG TAB PO SCH ×3 (07:44→22:25)
[2023-06-02 08:30] VITALS: PULSE 69; RESP 18; O2SAT 98
[2023-06-02 08:36] LABS: Basophils # (auto) 0.1 10 ^3/uL (0-0.2); Basophils % (auto) 0.8 % (0.0-2.0); Eosinophils # (auto) 0.5 10 ^3/uL (0-0.8); Eosinophils % (auto) 6.5 % (0.0-7.0); Hematocrit 27.9 % (41.0-53.0); Hemoglobin 9.2 g/dL (13.5-17.5); Lymphocytes # (auto) 0.8 10 ^3/uL (0.4-5.4); Lymphocytes % (auto) 10.2 % (10.0-50.0); Mean Corpuscular Hemoglobin 32.9 pg (28.0-32.0); Mean Corpuscular Hgb Conc. 33.1 g/dL (32.0-36.0); Mean Corpuscular Volume 99.4 fL (80.0-100.0); Monocytes # (auto) 0.7 10 ^3/uL (0-1.3); Monocytes % (auto) 9.4 % (0.0-12.0); Neutrophils # (auto) 5.4 10 ^3/uL (1.6-8.6); Neutrophils % (auto) 73.1 % (37.0-80.0); Red Blood Cells 2.81 10^6/uL (4.5-5.90); Red Cell Distribution Width 16.1 % (11.8-14.3); White Blood Cell 7.4 10^3/uL (4.4-10.8)
[2023-06-02 08:57] LABS: Alanine Aminotransferase 15 U/L (7-40); Albumin 4.2 g/dL (3.2-4.8); Alkaline Phosphatase 112 U/L (46-116); Anion Gap 14 (5-15); Aspartate Aminotransferase 9 U/L (13-40); BUN/Creatinine Ratio 7.4 (10.0-20.0); Bilirubin, Total 0.2 mg/dL (0.2-1.0); Blood Urea Nitrogen 65 mg/dL (9-23); Calcium 9.8 mg/dL (8.5-10.1); Carbon Dioxide 14 mmol/L (20-30); Chloride 111 mmol/L (98-107); Glucose 107 mg/dL (74-106); Sodium 139 mmol/L (136-145); Total Protein 6.5 g/dL (5.7-8.2)
[2023-06-02 09:13] LABS: Potassium 6.3 mmol/L (3.5-5.1)
[2023-06-02] MEDS ORDERED: SODIUM ZIRCONIUM CYCL 10 GM PAK PO SCH (09:15)
[2023-06-02] MEDS ORDERED: ALBUTEROL MEDNEB 2.5 mg/3ml NEB ONE (09:41)
[2023-06-02] MEDS ORDERED: CALCIUM GLUC 1,000mg/50ml-NS 50 ML IV ONE (09:45)
[2023-06-02] MEDS ORDERED: DEXTROSE (50%) 50ML SYRG IV ONE (09:45)
[2023-06-02] MEDS ORDERED: InsuLIN REG 1unit/0.01ml Soln (100units/ml) IV ONE (09:45)
[2023-06-02] MEDS ORDERED: FUROSEMIDE 20 MG/2 ML VIAL IV ONE (09:45)
[2023-06-02] MEDS ORDERED: ALBUTEROL SULF 2.5 MG/0.5ML(0.5%) NEB SOLN NEB ONE (09:45)
[2023-06-02] MEDS: SODIUM ZIRCONIUM CYCL 10 GM PAK PO SCH ×2 (15:02→22:24)
[2023-06-02] MEDS ORDERED: HYDROcodone-ACET 5/325MG TAB PO ONE (15:15)
[2023-06-02 18:31] LABS: Chloride 109 mmol/L (98-107); Potassium 5.3 mmol/L (3.5-5.1); Sodium 139 mmol/L (136-145)
[2023-06-02 18:32] LABS: Anion Gap 15 (5-15); Calcium 9.1 mg/dL (8.7-10.4); Carbon Dioxide 15 mmol/L (20-30)
[2023-06-02 18:37] LABS: BUN/Creatinine Ratio 8.1 (10.0-20.0); Blood Urea Nitrogen 74 mg/dL (9-23); Glucose 135 mg/dL (74-106)
[2023-06-02 19:20] VITALS: PULSE 73; RESP 21; O2SAT 100
[2023-06-02 21:08] LABS: Urine Bacteria NONE SEEN /hpf (None Seen); Urine Blood Negative /uL (Negative); Urine Clarity Clear (Clear); Urine Color Colorless (Yellow); Urine Protein, UAD 2+ (Negative); Urine Urobilinogen Normal (Negative); Urine WBC 2 /hpf (0 - 3); Urine pH 7.5 (5.0-8.0)
[2023-06-02] MEDS ORDERED: OLANZapine 5 MG TAB ONE (22:23)
[2023-06-02] MEDS ORDERED: SODIUM ZIRCONIUM CYCL 10 GM PAK ONE (22:23)
[2023-06-03] MEDS ORDERED: HYDROcodone-ACET 10/325MG TAB PO ONE (04:30)
[2023-06-03] MEDS: SODIUM ZIRCONIUM CYCL 10 GM PAK PO SCH ×3 (05:51→22:36)
[2023-06-03] MEDS: OLANZapine 5 MG TAB PO SCH ×2 (05:56→13:43)
[2023-06-03] MEDS ORDERED: OLANZapine 5 MG TAB ONE ×2 (05:56→13:37)
[2023-06-03 07:19] LABS: Chloride 108 mmol/L (98-107); Potassium 4.7 mmol/L (3.5-5.1); Sodium 140 mmol/L (136-145)
[2023-06-03 07:20] LABS: Anion Gap 11 (5-15); Carbon Dioxide 21 mmol/L (20-30)
[2023-06-03 07:25] LABS: Glucose 173 mg/dL (74-106)
[2023-06-03 07:26] LABS: Blood Urea Nitrogen 54 mg/dL (9-23)
[2023-06-03 07:52] VITALS: PULSE 82; RESP 22; O2SAT 98
[2023-06-03] MEDS ORDERED: SODIUM ZIRCONIUM CYCL 10 GM PAK ONE (13:37)
[2023-06-03] MEDS: HYDROcodone-ACET 10/325MG TAB PO PRN ×2 (13:44→22:37)
[2023-06-03 19:50] VITALS: PULSE 94; RESP 94; O2SAT 97
[2023-06-03] MEDS: AMIODARONE HCL 200 MG TAB PO SCH (22:37)
[2023-06-04] MEDS: HYDROcodone-ACET 10/325MG TAB PO PRN (05:11)
[2023-06-04] MEDS: SODIUM ZIRCONIUM CYCL 10 GM PAK PO SCH (06:00)
[2023-06-04] MEDS ORDERED: OLANZapine 5 MG TAB PO SCH (08:00)
[2023-06-04] MEDS: SEVELAMER 800 MG TAB PO SCH ×2 (08:24→12:17)
[2023-06-04] MEDS ORDERED: PANTOPRAZOLE 40 MG TAB PO SCH (10:00)
[2023-06-04] MEDS ORDERED: NIFEdipine ER 30 MG TAB PO SCH (10:00)
[2023-06-04] MEDS: AMIODARONE HCL 200 MG TAB PO SCH (10:28)
[2023-06-04] MEDS ORDERED: OLAN1TAB19 PO (14:41)
[2023-06-04 16:26] VITALS: BP 161/83; PULSE 74; RESP 16; TEMP 98.2; O2SAT 97
[2023-06-04] MEDS ORDERED: TAMSULOSIN HYDROCHLORIDE 0.4 MG CAP PO SCH (18:00)
== END 2023-06-04 19:13 | disposition home or self-care (01) ==
LOC: EDBD 10:04 → ER 10:04
DX: F23 Brief psychotic disorder (principal); I12.9 Hypertensive chronic kidney disease with stage 1 through stage 4 chronic kidney disease, or unspecified chronic kidney disease; I50.9 Heart failure, unspecified; N18.9 Chronic kidney disease, unspecified; F17.210 Nicotine dependence, cigarettes, uncomplicated; Z98.890 Other specified postprocedural states; Z79.899 Other long term (current) drug therapy
CPT/HCPCS: 36415; 80048; 80053; 80320; 81001; 82962; 85025; 85610; 85730; 87340; 94640; 96365; 96372; 96375; 99285; J0610; J1200; J1815; J1940; J2060; 90935

== ENCOUNTER 2023-08-17 16:50 | Inpatient (IN) | payer BC ==
[~2023-08-17] VITALS: Ht 177.8 cm; Wt 73.5 kg
[~2023-08-17 16:50] MED LIST changes: +OLAN1TAB19 PO
[2023-08-17 18:27] VITALS: PULSE 85; RESP 19; O2SAT 97
[2023-08-17 19:40] VITALS: PULSE 102; RESP 18; O2SAT 98
[2023-08-17 19:53] LABS: Basophils # (auto) 0 10 ^3/uL (0-0.2); Basophils % (auto) 0.4 % (0.0-2.0); Eosinophils # (auto) 0.2 10 ^3/uL (0-0.8); Hematocrit 35.1 % (41.0-53.0); Hemoglobin 11.4 g/dL (13.5-17.5); Lymphocytes # (auto) 0.8 10 ^3/uL (0.4-5.4); Lymphocytes % (auto) 7.4 % (10.0-50.0); Mean Corpuscular Hemoglobin 29.8 pg (28.0-32.0); Mean Corpuscular Hgb Conc. 32.4 g/dL (32.0-36.0); Mean Corpuscular Volume 92.1 fL (80.0-100.0); Monocytes # (auto) 1.2 10 ^3/uL (0-1.3); Monocytes % (auto) 11.5 % (0.0-12.0); Neutrophils # (auto) 8.1 10 ^3/uL (1.6-8.6); Neutrophils % (auto) 78.7 % (37.0-80.0); Nucleated Red Blood Cells % 0.1 %; Red Blood Cells 3.81 10^6/uL (4.5-5.90); Red Cell Distribution Width 15.7 % (11.8-14.3); White Blood Cell 10.3 10^3/uL (4.4-10.8)
[2023-08-17 20:42] LABS: Chloride 123 mmol/L (98-107); Sodium 141 mmol/L (136-145)
[2023-08-17 20:43] LABS: Anion Gap 8.00001 (5-15)
[2023-08-17 20:48] LABS: BUN/Creatinine Ratio 11.7 (10.0-20.0); Glucose 101 mg/dL (74-106)
[2023-08-17 21:23] LABS: Blood Urea Nitrogen 85 mg/dL (9-23); Carbon Dioxide < 10 mmol/L (20-30); Potassium 7.5 mmol/L (3.5-5.1)
[2023-08-17] MEDS: ALBUTEROL SULF 2.5 MG/0.5ML(0.5%) NEB SOLN NEB ONE (21:39)
[2023-08-17] MEDS: DEXTROSE (50%) 50ML SYRG IV ONE (21:46)
[2023-08-17] MEDS: SODIUM BICARB 8.4% 50Meq/50ml SYR Vial IV ONE (21:46)
[2023-08-17] MEDS: CALCIUM GLUC 1,000mg/50ml-NS 50 ML IV ONE (21:46)
[2023-08-17] MEDS: InsuLIN REG 1unit/0.01ml Soln (100units/ml) IV ONE (21:49)
[2023-08-17 23:39] LABS: Chloride 124 mmol/L (98-107)
[2023-08-17 23:40] LABS: Anion Gap 12.00001 (5-15); Calcium 8.8 mg/dL (8.7-10.4)
[2023-08-17 23:45] LABS: Glucose 156 mg/dL (74-106)
[2023-08-17 23:51] LABS: Blood Urea Nitrogen 74 mg/dL (9-23); Sodium 146 mmol/L (136-145)
[2023-08-17 23:53] LABS: Carbon Dioxide < 10 mmol/L (20-30); Potassium 6.4 mmol/L (3.5-5.1)
[2023-08-18] MEDS: SODIUM ZIRCONIUM CYCL 10 GM PAK PO ONE (00:08)
[2023-08-18] MEDS ORDERED: NITROGLYCERIN 0.4 MG SL TAB SL PRN (00:30)
[2023-08-18] MEDS: SODIUM BICARB 8.4% 50Meq/50ml SYR INJ IV ONE (00:30)
[2023-08-18] MEDS ORDERED: MORPHINE SULFATE INJ 2 MG/ml SYRG IV PRN (00:30)
[2023-08-18] MEDS ORDERED: ACETAMINOPHEN 325 MG TAB PO PRN (00:30)
[2023-08-18] MEDS ORDERED: ONDANSETRON HCL 4 MG/2 ML VIAL IV PRN (00:30)
[2023-08-18] MEDS: CALCIUM GLUC 1,000mg/50ml-NS 50 ML IV ONE ×2 (00:45→06:02)
[2023-08-18] MEDS: DEXTROSE (50%) 50ML SYRG IV ONE ×2 (01:18→06:03)
[2023-08-18] MEDS: InsuLIN REG 1unit/0.01ml Soln (100units/ml) IV ONE ×2 (01:19→06:16)
[2023-08-18] MEDS: AMIODARONE BOLUS KIT 100 ML IV ONE ×2 (02:05→02:07)
[2023-08-18] MEDS: MORPHINE SULFATE INJ 2 MG/ml SYRG ONE (02:05)
[2023-08-18] MEDS: dilTIAZem 25 MG/5 ML VIAL IV ONE ×2 (02:05→02:06)
[2023-08-18] MEDS: MORPHINE SULFATE INJ 2 MG/ml SYRG IV ONE (02:07)
[2023-08-18] MEDS: AMIODARONE 450mg/250ml AE 250 ML IV SCH (02:08)
[2023-08-18 02:31] LABS: Chloride 123 mmol/L (98-107); Sodium 147 mmol/L (136-145)
[2023-08-18 02:32] LABS: Anion Gap 14 (5-15); Carbon Dioxide 10 mmol/L (20-30)
[2023-08-18 02:33] LABS: Calcium 8.8 mg/dL (8.7-10.4)
[2023-08-18 02:37] LABS: Glucose 124 mg/dL (74-106)
[2023-08-18 02:38] LABS: BUN/Creatinine Ratio 12.3 (10.0-20.0)
[2023-08-18 03:22] LABS: Blood Urea Nitrogen 92 mg/dL (9-23); Potassium 5.9 mmol/L (3.5-5.1)
[2023-08-18 03:51] VITALS: PULSE 91; RESP 26; O2SAT 98
[2023-08-18 04:17] LABS: Basophils # (auto) 0 10 ^3/uL (0-0.2); Basophils % (auto) 0.2 % (0.0-2.0); Eosinophils # (auto) 0.1 10 ^3/uL (0-0.8); Eosinophils % (auto) 1.1 % (0.0-7.0); Hematocrit 27.3 % (41.0-53.0); Hemoglobin 9.2 g/dL (13.5-17.5); Lymphocytes # (auto) 0.3 10 ^3/uL (0.4-5.4); Lymphocytes % (auto) 3.8 % (10.0-50.0); Mean Corpuscular Hemoglobin 30.6 pg (28.0-32.0); Mean Corpuscular Hgb Conc. 33.8 g/dL (32.0-36.0); Mean Corpuscular Volume 90.7 fL (80.0-100.0); Monocytes # (auto) 1.1 10 ^3/uL (0-1.3); Monocytes % (auto) 12.3 % (0.0-12.0); Neutrophils # (auto) 7.2 10 ^3/uL (1.6-8.6); Neutrophils % (auto) 82.6 % (37.0-80.0); Nucleated Red Blood Cells % 0.1 %; Red Cell Distribution Width 15.5 % (11.8-14.3); White Blood Cell 8.7 10^3/uL (4.4-10.8)
[2023-08-18 04:38] LABS: Chloride 124 mmol/L (98-107); Sodium 147 mmol/L (136-145)
[2023-08-18 04:39] LABS: Anion Gap 13.00001 (5-15); Calcium 8.8 mg/dL (8.7-10.4)
[2023-08-18 04:44] LABS: BUN/Creatinine Ratio 11.3 (10.0-20.0); Glucose 85 mg/dL (74-106)
[2023-08-18 04:52] LABS: Blood Urea Nitrogen 84 mg/dL (9-23); Carbon Dioxide < 10 mmol/L (20-30); Potassium 6.3 mmol/L (3.5-5.1)
[2023-08-18] MEDS: ALBUTEROL SULF 2.5 MG/0.5ML(0.5%) NEB SOLN NEB ONE (05:45)
[2023-08-18] MEDS: SODIUM BICARB 8.4% 50Meq/50ml SYR Vial IV ONE (06:04)
[2023-08-18 07:44] VITALS: PULSE 97; RESP 22; O2SAT 99
[2023-08-18 09:10] LABS: Urine Bacteria FEW /hpf (None Seen); Urine Blood 1+ /uL (Negative); Urine Clarity Clear (Clear); Urine Protein, UAD 3+ (Negative); Urine Specific Gravity 1.011 (1.001-1.035); Urine Urobilinogen Normal (Negative); Urine WBC 96 /hpf (0 - 3); Urine pH 7.5 (5.0-8.0)
[2023-08-18 09:12] LABS: Urine Color Yellow (Yellow)
[2023-08-18] MEDS: SODIUM CHL 0.9% 1000 ML BAG XX ONE (11:14)
[2023-08-18] MEDS: DIGOXIN (250MCG/ML) 2 ML AMPULE IV ONE ×2 (11:21→13:33)
[2023-08-18] MEDS: dilTIAZem 125mg/125ml BAG KIT 125 ML IV SCH (13:21)
[2023-08-18 15:33] LABS: Potassium 4.8 mmol/L (3.5-5.1); Sodium 143 mmol/L (136-145)
[2023-08-18 15:34] LABS: Anion Gap 10 (5-15); Calcium 8.3 mg/dL (8.7-10.4); Carbon Dioxide 22 mmol/L (20-30)
[2023-08-18 15:39] LABS: BUN/Creatinine Ratio 11.2 (10.0-20.0)
[2023-08-18 15:40] LABS: Magnesium 1.9 mg/dL (1.6-2.6)
[2023-08-18 15:42] LABS: Blood Urea Nitrogen 55 mg/dL (9-23); Chloride 111 mmol/L (98-107); Glucose 191 mg/dL (74-106)
[2023-08-18 16:46] LABS: Triglycerides 82 mg/dL (< 150)
[2023-08-18 16:47] LABS: LDL Cholesterol 43 mg/dL (< 100)
[2023-08-18 16:48] LABS: HDL Cholesterol 59 mg/dL (40-59)
[2023-08-18 16:49] LABS: Cholesterol 117 mg/dL (< 200)
[2023-08-18] MEDS: MAGNESIUM SULFATE 1GM/100ML 100 ML IV ONE (17:14)
[2023-08-18 19:30] VITALS: PULSE 73; RESP 22; O2SAT 93
[2023-08-18] MEDS: cefTRIAXone 1GM/50ML D5W 50 ML IV ONE (20:22)
[2023-08-19 06:12] LABS: Basophils # (auto) 0 10 ^3/uL (0-0.2); Basophils % (auto) 0.2 % (0.0-2.0); Eosinophils # (auto) 0.2 10 ^3/uL (0-0.8); Hematocrit 25.4 % (41.0-53.0); Hemoglobin 8.6 g/dL (13.5-17.5); Lymphocytes # (auto) 0.7 10 ^3/uL (0.4-5.4); Lymphocytes % (auto) 8.3 % (10.0-50.0); Mean Corpuscular Hemoglobin 30.8 pg (28.0-32.0); Mean Corpuscular Hgb Conc. 33.9 g/dL (32.0-36.0); Mean Corpuscular Volume 90.8 fL (80.0-100.0); Monocytes # (auto) 1.2 10 ^3/uL (0-1.3); Monocytes % (auto) 14.4 % (0.0-12.0); Neutrophils # (auto) 5.9 10 ^3/uL (1.6-8.6); Neutrophils % (auto) 74.1 % (37.0-80.0); Red Blood Cells 2.79 10^6/uL (4.5-5.90); Red Cell Distribution Width 15.6 % (11.8-14.3)
[2023-08-19 06:25] LABS: Chloride 112 mmol/L (98-107); Sodium 141 mmol/L (136-145)
[2023-08-19 06:26] LABS: Anion Gap 9 (5-15); Carbon Dioxide 20 mmol/L (20-30)
[2023-08-19 06:27] LABS: Calcium 8.2 mg/dL (8.7-10.4)
[2023-08-19 06:31] LABS: BUN/Creatinine Ratio 10.6 (10.0-20.0); Blood Urea Nitrogen 61 mg/dL (9-23); Glucose 96 mg/dL (74-106)
[2023-08-19 06:50] LABS: Potassium 5.8 mmol/L (3.5-5.1)
[2023-08-19] MEDS: cefTRIAXone 1GM/50ML D5W 50 ML IV SCH (09:50)
[2023-08-19] MEDS: SODIUM ZIRCONIUM CYCL 10 GM PAK PO ONE (09:50)
[2023-08-19] MEDS: AMIODARONE HCL 200 MG TAB PO SCH (09:50)
[2023-08-19] MEDS: DIGOXIN 0.125 MG TAB PO SCH (09:56)
[2023-08-19] MEDS: ENOXAPARIN SOD 60 MG/0.6 ML SYRINGE SC SCH (10:00)
[2023-08-19] MEDS: SODIUM ZIRCONIUM CYCL 10 GM PAK PO SCH (14:00)
[2023-08-19 19:25] VITALS: PULSE 63; RESP 17; O2SAT 95
[2023-08-20] VITALS (7 sets, daily range): BP systolic 134–175; BP diastolic 67–81; PULSE 48–73; RESP 16–18; TEMP 97.4–98.3; O2SAT 96–100
[2023-08-20 07:31] LABS: Basophils # (auto) 0 10 ^3/uL (0-0.2); Basophils % (auto) 0.3 % (0.0-2.0); Eosinophils # (auto) 0.4 10 ^3/uL (0-0.8); Eosinophils % (auto) 4.1 % (0.0-7.0); Hematocrit 25.1 % (41.0-53.0); Hemoglobin 8.5 g/dL (13.5-17.5); Lymphocytes # (auto) 0.8 10 ^3/uL (0.4-5.4); Lymphocytes % (auto) 8.8 % (10.0-50.0); Mean Corpuscular Hemoglobin 30.9 pg (28.0-32.0); Monocytes # (auto) 1.3 10 ^3/uL (0-1.3); Monocytes % (auto) 14.8 % (0.0-12.0); Neutrophils # (auto) 6.5 10 ^3/uL (1.6-8.6); Red Blood Cells 2.76 10^6/uL (4.5-5.90)
[2023-08-20 07:48] LABS: Anion Gap 11 (5-15); Carbon Dioxide 17 mmol/L (20-30); Chloride 113 mmol/L (98-107); Potassium 5.5 mmol/L (3.5-5.1); Sodium 141 mmol/L (136-145)
[2023-08-20 07:50] LABS: Calcium 8.6 mg/dL (8.5-10.1)
[2023-08-20 07:54] LABS: BUN/Creatinine Ratio 11.5 (10.0-20.0); Glucose 76 mg/dL (74-106)
[2023-08-20 07:55] LABS: Blood Urea Nitrogen 76 mg/dL (9-23)
[2023-08-20] MEDS: HYDROcodone-ACET 5/325MG TAB PO PRN (10:17)
[2023-08-20] MEDS: NIFEdipine ER 30 MG TAB PO SCH (18:48)
[2023-08-20] MEDS: SODIUM CHL 0.9% 1000 ML BAG XX ONE (18:49)
[2023-08-20] MEDS: EPOETIN ALFA-EPBX 10,000 UNIT/1ML VIAL SC ONE (20:45)
[2023-08-21] VITALS (8 sets, daily range): BP systolic 106–138; BP diastolic 50–72; PULSE 50–73; RESP 16–20; TEMP 97.9–98.5; O2SAT 96–100
[2023-08-21 06:43] LABS: Chloride 106 mmol/L (98-107); Potassium 4.5 mmol/L (3.5-5.1); Sodium 139 mmol/L (136-145)
[2023-08-21 06:44] LABS: Anion Gap 6 (5-15); Carbon Dioxide 27 mmol/L (20-30)
[2023-08-21 06:45] LABS: Calcium 8.4 mg/dL (8.7-10.4)
[2023-08-21 06:49] LABS: Glucose 103 mg/dL (74-106)
[2023-08-21 06:50] LABS: BUN/Creatinine Ratio 9.9 (10.0-20.0); Blood Urea Nitrogen 45 mg/dL (9-23)
[2023-08-21] MEDS: LATUDA 40 MG PO SCH (08:53)
[2023-08-21] MEDS: MINOXIDIL 2.5 MG TAB PO SCH ×2 (09:32→22:28)
[2023-08-21] MEDS: FUROSEMIDE 100 MG/10ML VIAL IV SCH (18:24)
[2023-08-21] MEDS: APIXABAN 2.5 MG TAB PO SCH (22:28)
[2023-08-22 05:00] VITALS: BP 116/57; PULSE 65; RESP 18; TEMP 98.1; O2SAT 100
[2023-08-22 06:44] LABS: Anion Gap 10 (5-15); Carbon Dioxide 22 mmol/L (20-30); Chloride 105 mmol/L (98-107); Potassium 4.9 mmol/L (3.5-5.1); Sodium 137 mmol/L (136-145)
[2023-08-22 06:50] LABS: Glucose 101 mg/dL (74-106)
[2023-08-22 06:51] LABS: BUN/Creatinine Ratio 9.7 (10.0-20.0)
[2023-08-22 07:01] LABS: Blood Urea Nitrogen 55 mg/dL (9-23)
[2023-08-22 07:40] VITALS: PULSE 76; RESP 20; O2SAT 97
[2023-08-22 08:00] VITALS: PULSE 61
[2023-08-22 08:39] VITALS: BP 136/66; PULSE 76; RESP 20; TEMP 98; O2SAT 97
[2023-08-22] MEDS ORDERED: LURA40TA2 PO (11:07)
[2023-08-22] MEDS ORDERED: MIN25T PO (11:07)
[2023-08-22 12:35] VITALS: BP 117/69; PULSE 68; RESP 18; TEMP 97.8; O2SAT 99
[2023-08-22 16:35] VITALS: BP 127/73; PULSE 70; RESP 18; O2SAT 98
[2023-08-22] MEDS: OLANZapine 5 MG TAB PO SCH (18:00)
== END 2023-08-22 18:38 | disposition home health service (06) | DRG 640 ==
LOC: EDUNIT# 16:50 → ER 16:50 → EDBD 16:50 → TELE 08-18 00:34 → TELE-CENTR 08-20 09:36
PROVIDERS: ADMIT Nurse Practitioner Family; ATTEND Internal Medicine
PROC: 06HY33Z Insertion of Infusion Device into Lower Vein, Percutaneous Approach (ICD-10-PCS; principal; 2023-08-18)
PROC: 5A1D70Z Performance of Urinary Filtration, Intermittent, Less than 6 Hours Per Day (ICD-10-PCS; 2023-08-18)
PROC: 5A1D70Z Performance of Urinary Filtration, Intermittent, Less than 6 Hours Per Day (ICD-10-PCS; 2023-08-20)
PROC: 5A1D70Z Performance of Urinary Filtration, Intermittent, Less than 6 Hours Per Day (ICD-10-PCS; 2023-08-22)
DX: E87.5 Hyperkalemia (principal); N18.6 End stage renal disease; I13.2 Hypertensive heart and chronic kidney disease with heart failure and with stage 5 chronic kidney disease, or end stage renal disease; I48.20 Chronic atrial fibrillation, unspecified; F31.30 Bipolar disorder, current episode depressed, mild or moderate severity, unspecified; E87.20 Acidosis, unspecified; Z99.2 Dependence on renal dialysis; D64.9 Anemia, unspecified; J44.9 Chronic obstructive pulmonary disease, unspecified; F17.210 Nicotine dependence, cigarettes, uncomplicated; F20.9 Schizophrenia, unspecified; I50.9 Heart failure, unspecified; Z82.61 Family history of arthritis; Z91.199 Patient's noncompliance with other medical treatment and regimen due to unspecified reason; Z82.49 Family history of ischemic heart disease and other diseases of the circulatory system; Z91.158 Patient's noncompliance with renal dialysis for other reason
CPT/HCPCS: 36415; 71045; 80048; 80061; 80162; 81001; 82962; 83036; 83735; 84443; 84484; 85025; 87086; 90935; 93005; 93306; 94640; 96365; 96375; 97163; 99291; G0378; J1642; J1815